=== PATIENT | female | born 1975 | race Caucasian/White ===

== ENCOUNTER 2016-11-16 13:21 | Emergency (ER) | payer OTHER ==
--- NOTE | 2016-11-16 15:44 | RAD ---
HISTORY: Subacute left knee trauma, pain COMPARISONS: None VIEWS: 4, Frontal, lateral, axial, and oblique views of the left knee FINDINGS: BONE DENSITY: Normal. BONES: There is no displaced fracture. JOINTS: There is no arthropathy. There is no suprapatellar joint effusion or lipohemarthrosis. ALIGNMENT: There is no dislocation. SOFT TISSUES: Unremarkable. OTHER FINDINGS: None. IMPRESSION: NO ACUTE OSSEOUS INJURY. IF SYMPTOMS PERSIST, RECOMMEND REPEAT IMAGING.
[2016-11-16 16:07] VITALS: BP 117/69
--- NOTE | 2016-11-16 16:53 | UC ---
Knee Pain HPI - HPI Summary HPI Summary: FOUR DAYS AGO LEFT KNEE TWISTED, HAS HAD CONTINUED PAIN SINCE INJURY. HX OF RIGHT KNEE BURSITIS - History of Current Complaint Chief Complaint: UCLowerExtremity Stated Complaint: KNEE PAIN Time Seen by Provider: 11/16/16 15:09 Hx Obtained From: Patient, Family/High Pressure Cleaner Onset/Duration: Sudden Onset, Lasting Days, Still Present Severity Initially: Moderate Severity Currently: Moderate Character: Dull, Aching Aggravating Factor(s): Movement, Weight Bearing, Prolonged Standing Alleviating Factor(s): Rest, Position Able to Bear Weight: Yes - WITH PAIN - Risk Factors Septic Arthritis Risk Factor: Negative Gout Risk Factor: Negative - Allergies/Home Medications Allergies/Adverse Reactions: Allergies Allergy/AdvReac Type Severity Reaction Status Date / Time Morphine Allergy Intermediate Hives Verified 11/16/16 13:57 Cephalexin [From Keflex] Allergy Mild Hives Verified 11/16/16 13:57 Ciprofloxacin Allergy Mild Rash Verified 11/16/16 13:57 Levofloxacin [From Levaquin] Allergy Mild Hives Verified 11/16/16 13:57 Meperidine [From Demerol HCl] Allergy Mild Pain Verified 11/16/16 13:57 Codeine AdvReac Intermediate Headache Verified 11/16/16 13:57 PMH/Surg Hx/FS Hx/Imm Hx Previously Healthy: Yes Endocrine History Of: Denies: Diabetes, Thyroid Disease Cardiovascular History Of: Denies: Cardiac Disorders, Hypertension, Pacemaker/ICD, Congestive Heart Failure Respiratory History Of: Reports: COPD, Asthma GI/ History Of: Reports: Gastroesophageal Reflux, Kidney Stones Denies: Renal Disease Neurological History Of: Denies: CVA, Dementia, Seizures Psychological History Of: Reports: Depression, Bipolar Disorder Other History Of: Negative For: Anticoagulant Therapy - Surgical History Surgical History: Yes Surgery Procedure, Year, and Place: HYSTERECTOMY/MARIE/LITHO 1X FOR RENAL CALCULI/TONSILS, APPENDECTOMY. april 2016 - gastric bypass - Family History Known Family History: Positive: None, Cardiac Disease, Other - grandfather of [place] in 50s, grandmother of cancer in 50s - Social History Occupation: Employed Full-time Lives: With Family Alcohol Use: None Substance Use Type: None Smoking Status (MU): Former Smoker Type: Cigarettes Amount Used/How Often: 1 pack every 2 weeks Length of Time of Smoking/Using Tobacco: 22 years Have You Smoked in the Last Year: Yes Household Exposure Type: Cigarettes - Immunization History Most Recent Influenza Vaccination: never Most Recent Tetanus Shot: unknown Most Recent Pneumonia Vaccination: no Review of Systems Constitutional: Negative Skin: Negative Eyes: Negative ENT: Negative Respiratory: Negative Cardiovascular: Negative Gastrointestinal: Negative Genitourinary: Negative Motor: Negative Neurovascular: Negative Musculoskeletal: Arthralgia, Myalgia Neurological: Negative Psychological: Negative All Other Systems Reviewed And Are Negative: Yes Physical Exam Triage Information Reviewed: Yes Appearance: Well-Appearing, No Pain Distress, Well-Nourished Vital Signs: Initial Vital Signs Temp 98.1 F 11/16/16 13:53 Pulse 69 11/16/16 13:53 Resp 20 11/16/16 13:53 BP 125/71 11/16/16 13:53 Pulse Ox 99 11/16/16 13:53 Vital Signs Reviewed: Yes Eye Exam: Normal ENT Exam: Normal ENT: Positive: Normal ENT inspection, Hearing grossly normal, Pharynx normal, TMs normal Dental Exam: Normal Neck exam: Normal Neck: Positive: Supple, Nontender, No Lymphadenopathy Respiratory Exam: Normal Respiratory: Positive: Chest non-tender, Lungs clear, Normal breath sounds, No respiratory distress, No accessory muscle use Cardiovascular Exam: Normal Cardiovascular: Positive: RRR, No Murmur, Pulses Normal Abdominal Exam: Normal Musculoskeletal Exam: Normal Musculoskeletal: Positive: Strength Limited @ - LEFT KNEE, ROM Limited @ - LEFT KNEE, Edema @ - LEFT KNEE Neurological Exam: Normal Psychological Exam: Normal Skin Exam: Normal Knee Pain Course/Dx - Differential Dx/Diagnosis Differential Diagnosis/HQI/PQRI: Fracture (Closed), Internal Derangement Of Knee , Sprain, Strain Provider Diagnoses: LEFT KNEE SPRAIN Discharge - Discharge Plan Condition: Stable Disposition: HOME Patient Education Materials: Knee Sprain (ED) Forms: *Work Release Referrals: Ben Crespo MD [Primary Care Provider] - Sandra Harvey MD [Medical Doctor] -
== END 2016-11-16 16:54 | disposition home or self-care (01) ==
LOC: UCEAST 13:21
DX: S83.92XA Sprain of unspecified site of left knee, initial encounter (principal); X50.1XXA Overexertion from prolonged static or awkward postures, initial encounter; Y93.9 Activity, unspecified; Y92.9 Unspecified place or not applicable; Z88.1 Allergy status to other antibiotic agents; Z88.5 Allergy status to narcotic agent; Z87.891 Personal history of nicotine dependence
CPT/HCPCS: 99212; G0463

== ENCOUNTER 2016-12-14 19:32 | Emergency (ER) | payer OTHER ==
[2016-12-14 21:16] LABS: Urine Bacteria 3+ (Absent); Urine Bilirubin Negative (Negative); Urine Glucose Negative (Negative); Urine Nitrite Positive (Negative)
[2016-12-15] MEDS ORDERED: traMADol TAB* 50 MG PO ONE (00:38)
[2016-12-15] MEDS ORDERED: Sulfamethox/Trimethoprim DS 800/160* TAB PO ONE (00:44)
--- NOTE | 2016-12-15 00:44 | ED ---
GI/ HPI - HPI Summary HPI Summary: Patient presents to ED with CC of urinary pain, burning frequency, urgency and right and left flank pain, worsen in the right flank. She denies gross hematuria. She states she has UTI's often and a history of kidney stones with blasting procedure and kidney infection. Symptoms have been present for 2 days and have been increasing in severity. She denies other symptoms such as chest pain, pressure, abdominal pain or weakness. Denies fever, sweats or chills. She has taken Pyridium without relief. - History of Current Complaint Chief Complaint: EDUrogenitalProblems Time Seen by Provider: 12/15/16 00:30 Stated Complaint: BURNING WHEN URINATING Hx Obtained From: Patient Onset/Duration: Started Hours Ago Timing: Constant Severity: Moderate Current Severity: Moderate Pain Intensity: 8 Location of Pain: Suprapubic Pain Characteristics: Sharp Associated Signs and Symptoms: Positive: Back Pain, UTI Symptoms Aggravating Factor(s): Nothing Alleviating Factor(s): Nothing - Risk Factors GI Bleed Risk Factor(s): Negative Spontaneous AB Risk Factor(s): Negative Placental Abruption Risk Factor(s): Negative Ectopic Risk Factor(s): Maternal Age ^ 30 Ovarian Torsion Risk Factor(s): Reproductive Age - Additional Pertinent History Primary Care Physician: [id number] - Allergy/Home Medications Allergies/Adverse Reactions: Allergies Allergy/AdvReac Type Severity Reaction Status Date / Time Morphine Allergy Intermediate Hives Verified 11/23/16 13:41 Cephalexin [From Keflex] Allergy Mild Hives Verified 11/23/16 13:41 Ciprofloxacin Allergy Mild Rash Verified 11/23/16 13:41 Levofloxacin [From Levaquin] Allergy Mild Hives Verified 11/23/16 13:41 Meperidine [From Demerol HCl] Allergy Mild Pain Verified 11/23/16 13:41 Codeine AdvReac Intermediate Headache Verified 11/23/16 13:41 PMH/Surg Hx/FS Hx/Imm Hx Previously Healthy: Yes Endocrine/Hematology History: Denies: Hx Anticoagulant Therapy, Hx Diabetes, Hx Thyroid Disease Cardiovascular History: Denies: Hx Congestive Heart Failure, Hx Hypertension, Hx Pacemaker/ICD Respiratory History: Reports: Hx Asthma, Hx Chronic Obstructive Pulmonary Disease (COPD) GI History: Reports: Hx Gastroesophageal Reflux Disease History: Reports: Hx Kidney Infection, Hx Kidney Stones, Other Problems/ Disorders - RENAL CALCULI WITH LITHO Denies: Hx Dialysis, Hx Renal Disease Musculoskeletal History: Reports: Hx Arthritis, Other Musculoskeletal History - degenerative disk disease Sensory History: Reports: Hx Contacts or Glasses Denies: Hx Hearing Aid Opthamlomology History: Reports: Hx Contacts or Glasses Neurological History: Denies: Hx Dementia, Hx Seizures Psychiatric History: Reports: Hx Depression, Hx Bipolar Disorder Denies: Hx Panic Disorder, Hx Substance Abuse - Cancer History Cancer Type, Location and Year: CERVICAL - Surgical History Surgery Procedure, Year, and Place: HYSTERECTOMY/MARIE/LITHO 1X FOR RENAL CALCULI/TONSILS, APPENDECTOMY. april 2016 - gastric bypass Hx Anesthesia Reactions: No - Immunization History Date of Tetanus Vaccine: N Date of Influenza Vaccine: N Hx Pertussis Vaccination: No Immunizations Up to Date: No Infectious Disease History: No Infectious Disease History: Denies: Hx Clostridium Difficile, Hx Hepatitis, Hx Human Immunodeficiency Virus (HIV), Hx of Known/Suspected MRSA, Hx Shingles, Hx Tuberculosis, Hx Known/ Suspected VRE, Hx Known/Suspected VRSA, History Other Infectious Disease, Traveled Outside the [place] in Last 30 Days - Family History Known Family History: Positive: None, Cardiac Disease, Other - grandfather of [place] in 50s, grandmother of cancer in 50s - Social History Occupation: Employed Full-time Lives: With Family Alcohol Use: None Hx Substance Use: No Substance Use Type: Reports: None Hx Tobacco Use: Yes - smoked 1/2 ppd since age 17 to age 39 Smoking Status (MU): Former Smoker Type: Cigarettes Amount Used/How Often: 1 pack every 2 weeks Length of Time of Smoking/Using Tobacco: 22 years Have You Smoked in the Last Year: Yes Review of Systems Constitutional: Negative Eyes: Negative Cardiovascular: Negative Respiratory: Negative Positive: see HPI, flank pain, pain, urgency Musculoskeletal: Negative Skin: Negative Neurological: Negative Psychological: Normal All Other Systems Reviewed And Are Negative: Yes Physical Exam Triage Information Reviewed: Yes Vital Signs On Initial Exam: Initial Vitals Temp Pulse Resp BP Pulse Ox 98.4 F 84 16 145/79 100 12/14/16 19:44 12/14/16 19:44 12/14/16 19:44 12/14/16 19:44 12/14/16 19:44 Vital Signs Reviewed: Yes Appearance: Positive: Well-Appearing, No Pain Distress, Well-Nourished Skin: Positive: Warm, Skin Color Reflects Adequate Perfusion Head/Face: Positive: Normal Head/Face Inspection Eyes: Positive: EOMI, JACQUES, Conjunctiva Clear Dental: Positive: Abscess @ Neck: Positive: No Lymphadenopathy Respiratory/Lung Sounds: Positive: Clear to Auscultation, Breath Sounds Present Cardiovascular: Positive: Normal, RRR Abdomen Description: Positive: Nontender, Soft Bowel Sounds: Positive: Present Musculoskeletal: Positive: Normal, Strength/ROM Intact Neurological: Positive: Speech Normal Psychiatric: Positive: Normal Diagnostics - Vital Signs Vital Signs Temp Pulse Resp BP Pulse Ox 12/14/16 22:06 97.3 F 68 16 120/79 100 12/14/16 19:44 98.4 F 84 16 145/79 100 - Laboratory Lab Results: Lab Results 12/14/16 Range/Units 19:50 Urine Color [place] Urine Appearance Cloudy Urine pH 6.0 (5-9) Ur Specific [place] 1.013 (1.010-1.030) Urine Protein 1+(30 mg/dl) H (Negative) Urine Ketones Negative (Negative) Urine Blood Negative (Negative) Urine Nitrate Positive H (Negative) Urine Bilirubin Negative (Negative) Urine Urobilinogen Positive H (Negative) Ur Leukocyte Esterase 2+ H (Negative) Urine WBC (Auto) 3+(>20/hpf) H (Absent) Urine RBC (Auto) 3+(>10/hpf) H (Absent) Ur Squamous Epith Cells Present H (Absent) Urine Bacteria 3+ H (Absent) Hyaline Casts Present H (Absent) Urine Glucose Negative (Negative) Lab Statement: Any lab studies that have been ordered have been reviewed, and results considered in the medical decision making process. GIGU Course/Dx - Course Course Of Treatment: UA performed. WBC and leuks seen. Labs WNL. Patient experiencing urgency, frequency and pain on urination. Dark urine noted. No abnormal vaginal discharge or bleeding. CVA tenderness bilaterally, worse on L flank. No previous UTI within last 6 months and no recent Augmentin use. Will treat for uncomplicated UTI and await sensitivities of urine culture. Will call if abx not sensitive to medication. Pyridium given for comfort. Return precautions and follow up with PCP. Patient was sent to CT d/t right sided flank pain and history of large kidney stones with lithotripsy. Bactrim and tramadol given in ED. Prescription for Bactrim sent to rx. Encouraged pyridium, which patient has at home for analgesia. - Diagnoses Differential Diagnoses - Female: Renal Calculi, Renal Colic, Urinary Tract Infection, Ureteral Calculi Provider Diagnoses: Urinary tract infection Discharge - Discharge Plan Condition: Stable Disposition: HOME Prescriptions: Phenazopyridine TAB* [Pyridium 100 mg TAB*] 100 mg PO TID #20 tab Sulfamethox/Trimethoprim DS* [Bactrim DS 800/160 TAB*] 1 tab PO BID #5 tab MDD 2 Patient Education Materials: Urinary Tract Infection in Women (ED) Referrals: Ben Crespo MD [Primary Care Provider] - Additional Instructions: Dx. Urinary Tract Infection Drink plenty of fluids. Supplement with cranberry or rabago juice. You may also take an over the counter cranberry supplement. If you have any questions about this, you may ask your pharmacist. If your symptoms have not improved in 1-2 days, if you develop fever, sweats or chills, please go to your emergency room, or call your PCP. Antibiotics were prescribed to you. Please take as directed. Supplement with over the counter probiotics on the opposite schedule of your antibiotic to prevent secondary infections. Do not take together as they may counteract each other. Pyridium: This medication is used to treat pain, burning, increased urination, and increased urge to urinate. These symptoms are usually caused by infection, injury, surgery, catheter, or other conditions that irritate the lower urinary tract. Pyridium will treat the symptoms of a urinary tract infection, but this medication does not treat the actual infection. Take the antibiotic that your doctor prescribes to treat your infection. Pyridium will most likely darken the color of your urine to an orange or red color. This is a normal effect and is not cause for alarm unless you have other symptoms such as pale or yellowed skin, fever, stomach pain, nausea, and vomiting. Darkened urine may also cause stains to your underwear, which may or may not be removed by laundering. It can also permanently stain soft contact lenses, and you should not wear them while taking this medicine.
[2016-12-15 01:19] VITALS: BP 138/88
[2016-12-15] MEDS ORDERED: Phenazopyridine TAB* 100 MG PO ONE (02:25)
--- NOTE | 2016-12-15 07:48 | RAD ---
Indication: Bilateral flank pain. CT of the abdomen and pelvis was performed without oral or IV contrast demonstration. Coronal and sagittal reconstructed images were obtained. Comparison is made with previous exam dated October 02, 2015. The lung bases demonstrate no pleural fluid, nodules or masses. Heart is of normal size without evidence of pericardial effusion. Liver is normal in size. No focal lesions or intrahepatic ductal dilatation is noted. Patient is status post cholecystectomy. The spleen is normal in size. The common duct is not dilated. Patient is status post cholecystectomy. The pancreas demonstrates no mass or pancreatic duct dilatation. No adrenal lesions are noted. The kidneys demonstrate no focal masses or hydronephrosis. Tiny calculi are noted in the lower pole of the right kidney which are nonobstructing. No hydroureter is noted noted. Aorta and inferior vena cava are unremarkable. No dilated loops of bowel are noted. CT of the pelvis demonstrates no retroperitoneal or pelvic lymphadenopathy. The urinary bladder is unremarkable. Multiple surgical clips are noted in the pelvis. The patient has had a prior anterior abdominal wall hernia repair. IMPRESSION: NONOBSTRUCTING CALCULI LOWER POLE RIGHT KIDNEY. NO EVIDENCE OF OBSTRUCTIVE UROPATHY IS NOTED. NO OTHER MASSES OR FLUID COLLECTIONS ARE NOTED. PATIENT IS STATUS POST ANTERIOR ABDOMINAL WALL HERNIA REPAIR.
== END 2016-12-15 02:57 | disposition home or self-care (01) ==
LOC: ED 19:32
DX: N39.0 Urinary tract infection, site not specified (principal); Z87.891 Personal history of nicotine dependence; F31.9 Bipolar disorder, unspecified; Z87.442 Personal history of urinary calculi; J44.9 Chronic obstructive pulmonary disease, unspecified
CPT/HCPCS: 74176; 81003; 81015; 87077; 87086; 87186; 99282; A9270-GY

== ENCOUNTER 2017-02-10 18:44 | Emergency (ER) | payer OTHER ==
[2017-02-10 21:43] LABS: Urine Bacteria 1+ (Absent); Urine Bilirubin Negative (Negative); Urine Glucose Negative (Negative); Urine Nitrite Positive (Negative)
[2017-02-10] MEDS ORDERED: NS 0.9% 1000 ML* 1,000 ML IV ONE (21:53)
[2017-02-10] MEDS ORDERED: Ketorolac INJ* 30 MG/ML 1 ML VIAL IV ONE (21:53)
[2017-02-10 22:13] LABS: Hematocrit 43 % (35-47); Hemoglobin 14.1 g/dl (12.0-16.0); Mean Corpuscular HGB Conc 33 g/dl (31-36); Mean Corpuscular Hemoglobin 29 pg (27-31); Mean Corpuscular Volume 88 fL (80-97); Mean Platelet Volume 8 um3 (7.4-10.4); Red Blood Count 4.84 10^6/ul (4.0-5.4); Red Cell Distribution Width 13 % (10.5-15); White Blood Count 7.7 10^3/ul (3.5-10.8)
[2017-02-10 22:17] LABS: Albumin 3.9 g/dL (3.2-5.2); BUN/Creatinine Ratio 9.5 (8-20); EGFR African American 84.2 (>60); EGFR Non-African American 65.5 (>60); Globulin 2.4 g/dL (2-4); Potassium 3.6 mmol/L (3.5-5.0); Total Bilirubin 0.6 mg/dL (0.2-1.0); Total Protein 6.3 g/dL (6.4-8.9)
--- NOTE | 2017-02-10 22:18 | RAD ---
INDICATION: Bilateral flank pain. History of nephrolithiasis. History of lithotripsy. COMPARISON: CT December 15, 2016 TECHNIQUE: Noncontrast axial source images were acquired from the level hemidiaphragms to the symphysis pubis as part of CT imaging for renal stone. Lung bases: The lung bases are clear. Liver: The liver is normal in size. Noncontrast imaging shows no evidence of a hepatic mass or ductal dilatation. Gallbladder: Cholecystectomy. Spleen: The spleen is normal in size. The noncontrast CT appearance is normal. Pancreas: Noncontrast imaging shows no pancreatic mass or ductal dilitation. Adrenal glands: No masses are identified. Kidneys/Bladder: There are several tiny calculi in the lower pole the right kidney and one tiny calculus in the midpole region of the left kidney. These calcifications measure 1 to 2 mm. There are no other calcifications of urinary significance. There is no obstruction. There is a ossification adjacent to the proximal to mid right ureter appearing unchanged and consistent with a phlebolith and a gonadal vein. Adenopathy: There is no evidence of intraperitoneal or retroperitoneal adenopathy. Evaluation is limited without oral contrast. Fluid collections: There are no free or localized fluid collections. Vessels: The aorta and iliac vessels are normal in caliber. There are no significant atherosclerotic changes. The IVC appears normal Pelvic organs: There is hysterectomy. There is no adnexal mass GI tract: Evaluation of the bowel is limited without oral contrast. There is prior bariatric surgery. The small bowel and colon are unremarkable. There are no obstructive findings. There is appendectomy. Soft tissues: No soft tissue abnormalities of the extraperitoneal abdomen or pelvis are identified. Osseous structures: There are no acute osseous findings. IMPRESSION: 1. NONOBSTRUCTIVE NEPHROLITHIASIS, UNCHANGED. 2. SURGICAL CHANGES TO INCLUDE BARIATRIC SURGERY, CHOLECYSTECTOMY, APPENDECTOMY, HYSTERECTOMY. 3. NO ACUTE CT FINDINGS. NO MASS OR INFLAMMATORY CHANGES.
[2017-02-10] MEDS ORDERED: Nitrofurantoin Macrocrystals* 50 MG CAP PO ONE (22:52)
[2017-02-10] MEDS ORDERED: Phenazopyridine TAB* 100 MG PO ONE (22:52)
[2017-02-10 23:03] VITALS: BP 110/67
--- NOTE | 2017-02-10 23:42 | ED ---
Back Pain - HPI Summary HPI Summary: Patient has a history of recurrent UTI's and three days ago began to develop burning with urination. 8 hours ago she began to have bilateral flank pain that felt the way she felt when she had kidney stones in the past. She has blood in her urine, no fever, L>R flank pain, suprapubic pain, no CP, SOB or recent illness. She denies vaginal discharge and her period is regular. - History of Current Complaint Chief Complaint: EDFlankPain Stated Complaint: FLANK PAIN Time Seen by Provider: 02/10/17 21:16 Hx Obtained From: Patient Onset/Duration: Gradual Onset Onset/Duration: Started Days Ago, Atraumatic, Worse Since - 8 hours ago Timing: Constant Back Pain Location: Is Discrete @ - bilatera flank L>R Severity Initially: Moderate Severity Currently: Severe Pain Intensity: 10 Character: Sharp, Aching Alleviating Symptom(s): Cold - ice pack reduces pain Associated Signs And Symptoms: Positive: Abdominal Pain - suprapubic, Flank Pain Related History: Similar Episode Dx As - recurrent UTIs and kindey stones - Allergies/Home Medications Allergies/Adverse Reactions: Allergies Allergy/AdvReac Type Severity Reaction Status Date / Time Morphine Allergy Intermediate Hives Verified 02/10/17 18:51 Cephalexin [From Keflex] Allergy Mild Hives Verified 02/10/17 18:51 Ciprofloxacin Allergy Mild Rash Verified 02/10/17 18:51 Levofloxacin [From Levaquin] Allergy Mild Hives Verified 02/10/17 18:51 Meperidine [From Demerol HCl] Allergy Mild Pain Verified 02/10/17 18:51 Codeine AdvReac Intermediate Headache Verified 02/10/17 18:51 PMH/Surg Hx/FS Hx/Imm Hx Endocrine/Hematology History: Denies: Hx Anticoagulant Therapy, Hx Diabetes, Hx Thyroid Disease Cardiovascular History: Denies: Hx Congestive Heart Failure, Hx Hypertension, Hx Pacemaker/ICD Respiratory History: Reports: Hx Asthma, Hx Chronic Obstructive Pulmonary Disease (COPD) GI History: Reports: Hx Gastroesophageal Reflux Disease History: Reports: Hx Kidney Infection, Hx Kidney Stones, Other Problems/ Disorders - RENAL CALCULI WITH LITHO Denies: Hx Dialysis, Hx Renal Disease Musculoskeletal History: Reports: Hx Arthritis, Other Musculoskeletal History - degenerative disk disease Sensory History: Reports: Hx Contacts or Glasses Denies: Hx Hearing Aid Opthamlomology History: Reports: Hx Contacts or Glasses Neurological History: Denies: Hx Dementia, Hx Seizures Psychiatric History: Reports: Hx Depression, Hx Bipolar Disorder Denies: Hx Panic Disorder, Hx Substance Abuse - Cancer History Cancer Type, Location and Year: CERVICAL - Surgical History Surgery Procedure, Year, and Place: HYSTERECTOMY/MARIE/LITHO 1X FOR RENAL CALCULI/TONSILS, APPENDECTOMY. april 2016 - gastric bypass Hx Anesthesia Reactions: No - Immunization History Date of Tetanus Vaccine: N Date of Influenza Vaccine: N Infectious Disease History: No Infectious Disease History: Denies: Hx Clostridium Difficile, Hx Hepatitis, Hx Human Immunodeficiency Virus (HIV), Hx of Known/Suspected MRSA, Hx Shingles, Hx Tuberculosis, Hx Known/ Suspected VRE, Hx Known/Suspected VRSA, History Other Infectious Disease, Traveled Outside the [place] in Last 30 Days - Family History Known Family History: Positive: None, Cardiac Disease, Other - grandfather of [place] in 50s, grandmother of cancer in 50s - Social History Occupation: Employed Part-time Lives: With Family Alcohol Use: None Hx Substance Use: No Substance Use Type: Reports: None Hx Tobacco Use: Yes - smoked 1/2 ppd since age 17 to age 39 Smoking Status (MU): Former Smoker Type: Cigarettes Amount Used/How Often: 1 pack every 2 weeks Length of Time of Smoking/Using Tobacco: 22 years Have You Smoked in the Last Year: Yes Cessation Counseling: Patient Advised to Stop Review of Systems Negative: Fever, Chills Negative: Chest Pain Negative: Shortness Of Breath Positive: burning, flank pain, hematuria, urgency Positive: Myalgia Negative: Weakness, Paresthesia, Numbness All Other Systems Reviewed And Are Negative: Yes Physical Exam Triage Information Reviewed: Yes Vital Signs On Initial Exam: Initial Vitals Temp Pulse Resp BP Pulse Ox 97.8 F 52 16 143/63 100 02/10/17 18:51 02/10/17 18:51 02/10/17 18:51 02/10/17 18:51 02/10/17 18:51 Vital Signs Reviewed: Yes Appearance: Positive: Well-Appearing, No Pain Distress, Obese Skin: Positive: Warm, Skin Color Reflects Adequate Perfusion, Dry, Soft Head/Face: Positive: Normal Head/Face Inspection Eyes: Positive: EOMI, JACQUES, Conjunctiva Clear ENT: Positive: Hearing grossly normal, Pharynx normal Neck: Positive: Supple, Nontender, No Lymphadenopathy Respiratory/Lung Sounds: Positive: Clear to Auscultation, Breath Sounds Present Cardiovascular: Positive: RRR Abdomen Description: Positive: Soft, CVA Tenderness (R), CVA Tenderness (L). Negative: Nontender - TTP suprapubic region, Distended, Guarding, McBurney's Point Tenderness Bowel Sounds: Positive: Present Musculoskeletal: Positive: Strength/ROM Intact. Negative: Edema Left, Edema Right Neurological: Positive: Sensory/Motor Intact, Alert, Oriented to Person Place, Time, NV Bundle Intact Distally, Normal Gait - Leonel Coma Scale Coma Scale Total: 15 Diagnostics - Vital Signs Vital Signs Temp Pulse Resp BP Pulse Ox 02/10/17 22:59 56 17 110/67 02/10/17 22:30 44 18 107/58 96 02/10/17 22:08 50 14 97 02/10/17 22:05 112/69 02/10/17 21:59 46 17 93 02/10/17 21:50 46 95 02/10/17 21:49 99/55 02/10/17 18:51 97.8 F 52 16 143/63 100 - Laboratory Lab Results: Lab Results 02/10/17 02/10/17 02/10/17 Range/Units 21:25 21:45 21:45 WBC 7.7 (3.5-10.8) 10^3/ul RBC 4.84 (4.0-5.4) 10^6/ul Hgb 14.1 (12.0-16.0) g/dl Hct 43 (35-47) % MCV 88 (80-97) fL MCH 29 (27-31) pg MCHC 33 (31-36) g/dl RDW 13 (10.5-15) % Plt Count 239 (150-450) 10^3/ul MPV 8 (7.4-10.4) um3 Neut % (Auto) 44.2 (38-83) % Lymph % (Auto) 46.8 (25-47) % Levy % (Auto) 6.4 (1-9) % Eos % (Auto) 2.3 (0-6) % Baso % (Auto) 0.3 (0-2) % Absolute Neuts (auto) 3.4 (1.5-7.7) 10^3/ul Absolute Lymphs (auto) 3.6 (1.0-4.8) 10^3/ul Absolute Monos (auto) 0.5 (0-0.8) 10^3/ul Absolute Eos (auto) 0.2 (0-0.6) 10^3/ul Absolute Basos (auto) 0 (0-0.2) 10^3/ul Absolute Nucleated RBC 0 10^3/ul Nucleated RBC % 0 Sodium 137 (133-145) mmol/L Potassium 3.6 (3.5-5.0) mmol/L Chloride 104 (101-111) mmol/L Carbon Dioxide 26 (22-32) mmol/L Anion Gap 7 (2-11) mmol/L BUN 9 (6-24) mg/dL Creatinine 0.95 (0.51-0.95) mg/dL Est GFR ( Amer) 84.2 (>60) Est GFR (Non-Af Amer) 65.5 (>60) BUN/Creatinine Ratio 9.5 (8-20) Glucose 94 (70-100) mg/dL Lactic Acid (0.5-2.0) mmol/L Calcium 9.0 (8.6-10.3) mg/dL Total Bilirubin 0.60 (0.2-1.0) mg/dL AST 13 (13-39) U/L ALT 13 (7-52) U/L Alkaline Phosphatase 58 (34-104) U/L Total Protein 6.3 L (6.4-8.9) g/dL Albumin 3.9 (3.2-5.2) g/dL Globulin 2.4 (2-4) g/dL Albumin/Globulin Ratio 1.6 (1-3) Urine Color Julianna Urine Appearance Cloudy Urine pH 6.0 (5-9) Ur Specific [place] 1.028 (1.010-1.030) Urine Protein 3+(>=500 mg/dl) H (Negative) Urine Ketones Trace H (Negative) Urine Blood 1+ H (Negative) Urine Nitrate Positive H (Negative) Urine Bilirubin Negative (Negative) Urine Urobilinogen Positive H (Negative) Ur Leukocyte Esterase 3+ H (Negative) Urine WBC (Auto) 3+(>20/hpf) H (Absent) Urine RBC (Auto) 3+(>10/hpf) H (Absent) Ur Squamous Epith Cells Present H (Absent) Urine Bacteria 1+ H (Absent) Urine Glucose Negative (Negative) Urine Ascorbic Acid * H (Negative) 02/10/17 Range/Units 21:45 WBC (3.5-10.8) 10^3/ul RBC (4.0-5.4) 10^6/ul Hgb (12.0-16.0) g/dl Hct (35-47) % MCV (80-97) fL MCH (27-31) pg MCHC (31-36) g/dl RDW (10.5-15) % Plt Count (150-450) 10^3/ul MPV (7.4-10.4) um3 Neut % (Auto) (38-83) % Lymph % (Auto) (25-47) % Levy % (Auto) (1-9) % Eos % (Auto) (0-6) % Baso % (Auto) (0-2) % Absolute Neuts (auto) (1.5-7.7) 10^3/ul Absolute Lymphs (auto) (1.0-4.8) 10^3/ul Absolute Monos (auto) (0-0.8) 10^3/ul Absolute Eos (auto) (0-0.6) 10^3/ul Absolute Basos (auto) (0-0.2) 10^3/ul Absolute Nucleated RBC 10^3/ul Nucleated RBC % Sodium (133-145) mmol/L Potassium (3.5-5.0) mmol/L Chloride (101-111) mmol/L Carbon Dioxide (22-32) mmol/L Anion Gap (2-11) mmol/L BUN (6-24) mg/dL Creatinine (0.51-0.95) mg/dL Est GFR ( Amer) (>60) Est GFR (Non-Af Amer) (>60) BUN/Creatinine Ratio (8-20) Glucose (70-100) mg/dL Lactic Acid 1.0 (0.5-2.0) mmol/L Calcium (8.6-10.3) mg/dL Total Bilirubin (0.2-1.0) mg/dL AST (13-39) U/L ALT (7-52) U/L Alkaline Phosphatase (34-104) U/L Total Protein (6.4-8.9) g/dL Albumin (3.2-5.2) g/dL Globulin (2-4) g/dL Albumin/Globulin Ratio (1-3) Urine Color Urine Appearance Urine pH (5-9) Ur Specific [place] (1.010-1.030) Urine Protein (Negative) Urine Ketones (Negative) Urine Blood (Negative) Urine Nitrate (Negative) Urine Bilirubin (Negative) Urine Urobilinogen (Negative) Ur Leukocyte Esterase (Negative) Urine WBC (Auto) (Absent) Urine RBC (Auto) (Absent) Ur Squamous Epith Cells (Absent) Urine Bacteria (Absent) Urine Glucose (Negative) Urine Ascorbic Acid (Negative) Result Diagrams: 02/10/17 21:45 02/10/17 21:45 Lab Statement: Any lab studies that have been ordered have been reviewed, and results considered in the medical decision making process. - CT No standard instances CT Interpretation: No Acute Changes CT Interpretation Completed By: Radiologist Back Pain Course/Dx - Diagnoses Differential Diagnosis/HQI/PQRI: Positive: Aneurysm, Arthritis, Cauda Equina Syndrome, Fracture, Herniated Disc, Renal Colic, Strain, Sprain Provider Diagnoses: UTI (urinary tract infection) Discharge - Discharge Plan Condition: Stable Disposition: HOME Prescriptions: Nitrofurantoin Monohyd Macro [Macrobid] 100 mg PO BID #10 cap Phenazopyridine 200 mg (NF) [Pyridium 200 MG tab] 200 mg PO TID PRN #6 tab PRN Reason: Pain Patient Education Materials: Urinary Tract Infection in Women (ED) Referrals: Ben Crespo MD [Primary Care Provider] - Additional Instructions: You need to call your primary care provider and/or Dr. Ott to discuss your recurrent urinary tract infections. Use your pyridium and take the antibiotics until they are completely gone. Return to the emergency department if you develop a fever, or symptoms worsen.
--- NOTE | 2017-02-12 09:56 | PN ---
Progress Note - Progress Note Date of Service: 02/12/17 Note: Patient urine culture grew E coli 75-100,000. PT placed on macrobid will wait for final culture.
== END 2017-02-10 23:12 | disposition home or self-care (01) ==
LOC: ED 18:44
DX: N39.0 Urinary tract infection, site not specified (principal); R10.84 Generalized abdominal pain; Z87.891 Personal history of nicotine dependence; R31.9 Hematuria, unspecified; M79.1 Myalgia
CPT/HCPCS: 36415; 74176; 80053; 81003; 81015; 83605; 85025; 87077; 87086; 87186; 96374; 99282; A9270-GY; J1885

== ENCOUNTER 2017-02-16 20:19 | Observation (INO) | payer OTHER ==
[2017-02-16 21:24] LABS: Urine Bilirubin Negative (Negative); Urine Glucose Negative (Negative); Urine Nitrite Negative (Negative)
[2017-02-16 21:32] LABS: Hematocrit 44 % (35-47); Hemoglobin 14.7 g/dl (12.0-16.0); Mean Corpuscular HGB Conc 33 g/dl (31-36); Mean Corpuscular Hemoglobin 30 pg (27-31); Mean Corpuscular Volume 89 fL (80-97); Mean Platelet Volume 8 um3 (7.4-10.4); Red Blood Count 4.94 10^6/ul (4.0-5.4); Red Cell Distribution Width 12 % (10.5-15); White Blood Count 7.3 10^3/ul (3.5-10.8)
[2017-02-16 21:46] LABS: ALT 14 U/L (7-52); AST 14 U/L (13-39); Albumin 4.1 g/dL (3.2-5.2); Alkaline Phosphatase 62 U/L (34-104); Anion Gap 1 mmol/L (2-11); BUN/Creatinine Ratio 9.1 (8-20); Blood Urea Nitrogen 8 mg/dL (6-24); CO2 Carbon Dioxide 31 mmol/L (22-32); Chloride 104 mmol/L (101-111); EGFR Non-African American 71.5 (>60); Globulin 2.3 g/dL (2-4); Glucose 96 mg/dL (70-100); Sodium 136 mmol/L (133-145); Total Protein 6.4 g/dL (6.4-8.9)
[2017-02-16] MEDS ORDERED: Gentamicin ADULT (*) 40 MG/ML VIAL IVPB ONE (21:47)
[2017-02-16] MEDS ORDERED: oxyCODONE/Acetamin 5/325 MG* TAB PO ONE (21:49)
--- NOTE | 2017-02-16 21:53 | RAD ---
Indication: RIGHT flank pain. Few punctate calyceal stones at the RIGHT kidney on prior CT. Comparison: February 10, 2017 CT. Technique: Renal ultrasound. Report: 11.4 x 5.0 x 5.3 cm RIGHT kidney. 10.9 x 4.1 x 5.7 cm LEFT kidney. Normal bilateral renal cortical echogenicity. No conspicuous shadowing echogenic foci to confirm persistent nephrolithiasis at this time. Negative for hydronephrosis. No focal renal lesions evident. Negative for perinephric fluid. IMPRESSION: Negative renal ultrasound.
[2017-02-17] MEDS ORDERED: Acetaminophen TAB* 325 MG PO PRN (00:45)
[2017-02-17] MEDS: NS 0.9% 1000 ML* 1,000 ML IV SCH ×2 (00:59→09:06)
[2017-02-17] MEDS: HYDROmorphone* 1 MG/ML 1 ML SYR IV SLOW PU PRN ×3 (01:00→10:28)
[2017-02-17] MEDS: oxyCODONE/Acetamin 5/325 MG* TAB PO SCH ×2 (05:34→12:21)
[2017-02-17] MEDS: oxyCODONE TAB* 5 MG TAB PO SCH ×2 (05:34→12:22)
[2017-02-17] MEDS ORDERED: Heparin VIAL(*) 5000 UNITS/ML VIAL (FIVE THOUSAND) SUBCUT SCH (06:00)
--- NOTE | 2017-02-17 08:49 | HP ---
CC: Ben Crespo MD * HISTORY AND PHYSICAL: DATE OF ADMISSION: 02/17/17 CHIEF COMPLAINT: Flank pain. HISTORY OF PRESENT ILLNESS: The patient is a 41-year-old woman who was recently in the emergency department, diagnosed with a UTI and placed on Macrodantin. This was on February 10 of this year. She said, however, she has had increasing flank pain on left side. She saw her PCP who noted that she had some stones on her last CAT scan. She was given tramadol, but this did not help. She was also told that her CAT scan had the same stones in it in November. She thinks she had some traces of blood in her urine. The pain radiates from the back to the front. She denies any fevers or chills. She has been taking Percocet she also has at home, but that is not helping. In the ER, the patient was evaluated. She had a normal white count. She had no fever. She had a renal ultrasound which was negative as well. PAST MEDICAL HISTORY: She has a past medical history significant for migraines , depression, nephrolithiasis, bipolar disorder, gastroesophageal reflux disease , Parrish's esophagus, degenerative joint disease, COPD, chronic UTI, restless leg syndrome, and carpal tunnel syndrome. PAST SURGICAL HISTORY: Significant for cholecystectomy, appendectomy, hysterectomy, tonsillectomy, and gastric bypass. CURRENT MEDICATIONS: 1. Tramadol 37.5 mg every 4 hours as needed. 2. Macrobid 100 mg twice daily. 3. Furosemide 20 mg daily. 4. Amitriptyline 150 mg at bedtime. 5. Pyridium [70?] mg 3x a day as needed. 6. Protonix 20 mg daily. 7. Percocet 10/325 mg one tablet every 6 hours. 8. Topamax 100 mg twice daily. ALLERGIES: She has an allergy adverse reaction of: 1. CIPRO. 2. LEVAQUIN. 3. KEFLEX. 4. DEMEROL. 5. MORPHINE. 6. CODEINE. FAMILY HISTORY: She is adopted. She does not know her family history. SOCIAL HISTORY: The patient currently works as a dispatcher for medical transportation. She denies tobacco, alcohol, or recreational drug use. She is . She has four children. REVIEW OF SYSTEMS: A 14-point review of systems was completed with the patient. All pertinent positives and negative are in the history of present illness, otherwise it is negative. PHYSICAL EXAMINATION GENERAL: Pleasant woman lying in bed, in no distress. VITAL SIGNS: Temperature 97.7 degrees, heart rate 68 beats per minute, respiratory rate 20 breaths per minute, pulse oximetry 100%, blood pressure 151/ 93. HEENT: Normocephalic and atraumatic. Pupils are equal, round and reactive to light. Moist mucous membranes. NECK: Supple. No JVD, bruits, palpable thyroid or lymphadenopathy. CHEST: Clear to auscultation and percussion bilaterally. CARDIOVASCULAR: S1, S2 appreciated. Regular rate and rhythm. ABDOMEN: Positive bowel sounds in all 4 quadrants. Soft, nontender, except in the right flank area. EXTREMITIES: No cyanosis, clubbing, or edema. +2 pulses bilaterally. NEUROLOGIC: Alert and oriented x3. Moves all extremities. SKIN: No rashes or abnormalities. LABORATORY DATA: White count 7.3, hemoglobin 14.7, hematocrit 44, platelets 216. Sodium 136, potassium 4.0, chloride 104, CO2 of 31, BUN 8, creatinine 0.88 , glucose 96. Urinalysis is unremarkable. Renal ultrasound was interpreted as negative renal ultrasound. CAT scan done on February 10 was interpreted by radiology as nonobstructive nephrolithiasis, unchanged. Surgical changes to include bariatric surgery, cholecystectomy, appendectomy, hysterectomy. No acute CT findings. No mass or inflammatory changes. ASSESSMENT AND PLAN: 1. Flank pain. It is hard to believe that the nephrolithiasis she has which is very insignificant would cause this much pain. However, I will admit her overnight, hydrate her aggressively with normal saline ____ cc/hour. Give her hydromorphone 1 mg every 4 hours for pain, but she should likely be discharged tomorrow. As her urine is negative and was sensitive to the Macrobid, I will continue Macrobid. 2. GERD. Stable, continue proton pump inhibitor. 3. Bipolar disorder. Patient appears to be currently off medications; monitor. 4. DVT prophylaxis. Heparin subcu. 5. FEN. Regular diet. 6. The patient is a full code. TIME SPENT: Over 75 minutes were spent on this H and P, more than 40 minutes of which were spent in direct [id number] contact with the patient in evaluation, physical exam, counseling, and coordination of care. [id number]/[facility] #: [id number] ELBA
[2017-02-17] MEDS ORDERED: Nitrofurantoin Macrocrystals* 50 MG CAP PO SCH (09:00)
[2017-02-17] MEDS ORDERED: Furosemide TAB* 20 MG PO SCH (09:00)
[2017-02-17] MEDS ORDERED: Pantoprazole TAB (NF) 20 MG TAB PO SCH (09:00)
[2017-02-17] MEDS ORDERED: Topiramate TAB(*) 100 MG PO SCH (09:00)
[2017-02-17 09:05] LABS: C Reactive Protein < 1.00 mg/L (< 5.00)
[2017-02-17] MEDS: Ondansetron INJ* 2 MG/ML VIAL IV SCH ×2 (09:06→12:22)
[2017-02-17 10:04] LABS: Benzodiazepine Urine Screen None Detected (None Detect)
[2017-02-17] MEDS ORDERED: Omeprazole CAP* 20 MG PO SCH (10:10)
[2017-02-17 12:30] VITALS: BP 123/79
[2017-02-17] MEDS ORDERED: Iohexol 300* (CONTRAST) 10 ML SDV IV ONE (12:36)
--- NOTE | 2017-02-17 13:19 | RAD ---
CLINICAL HISTORY: Flank pain COMPARISON: February 10, 2017 TECHNIQUE: Multiple contiguous axial CT scans were obtained of the abdomen and pelvis after the administration of intravenous contrast. Coronal and sagittal multiplanar reformations are submitted for review. Oral contrast was administered. Delayed images were obtained through the abdomen and pelvis. FINDINGS: LUNG BASES: The lung bases are clear. LIVER: The liver is diffusely low in attenuation compared to the spleen. There are no focal hepatic parenchymal masses. BILE DUCTS: There is no intrahepatic or extrahepatic biliary dilatation. GALLBLADDER: The gallbladder is not visualized. Surgical clips are noted in the gallbladder fossa. PANCREAS: The pancreas is normal, without mass or ductal dilatation. SPLEEN: Normal in size and appearance. UPPER GI TRACT: Evaluation of the gastrointestinal tract is limited by incomplete gastric distention. There is postsurgical change to the upper GI tract. SMALL BOWEL AND MESENTERY: The small bowel is normal in contour, course, and caliber. There is no obstruction or dilatation. COLON: The colon is normal in contour, course, caliber. There is no pericolonic inflammatory change. ADRENALS: Normal bilaterally. KIDNEYS: Nephrolithiasis noted on the previous examination is not well evaluated on this contrast-enhanced examination. There is no hydronephrosis. BLADDER: The bladder is smooth in contour. PELVIC ORGANS: The pelvic organs are not visualized. AORTA: The aorta is normal. IVC: Unremarkable LYMPH NODES: There is no lymphadenopathy by size criteria. ABDOMINAL WALL: There is no evidence for abdominal wall hernia. BONES AND SOFT TISSUES: There are mild diffuse degenerative changes. OTHER: None IMPRESSION: NO ACUTE CT PATHOLOGY OF THE VISUALIZED ABDOMEN OR PELVIS
[2017-02-17] MEDS ORDERED: Amitriptyline TAB* 50 MG PO SCH (21:00)
--- NOTE | 2017-02-18 10:36 | DS ---
CC: Dr. Crespo * DISCHARGE SUMMARY: DATE OF ADMISSION: 02/17/17 DATE OF DISCHARGE: 02/17/17 PRIMARY CARE PROVIDER: Dr. Crespo. DISCHARGE DIAGNOSIS: Right flank pain, most likely musculoskeletal. SECONDARY DIAGNOSES: 1. History of migraines. 2. Depression. 3. History of nephrolithiasis. 4. Bipolar disorder. 5. Gastroesophageal reflux disease. 6. History of Parrish's esophagus. 7. Degenerative joint disease. 8. Chronic obstructive pulmonary disease. 9. History of recurrent urinary tract infections. 10. Restless leg syndrome. 11. Carpal tunnel syndrome. MEDICATIONS AT DISCHARGE: Unchanged from admission and include: 1. Tramadol 37.5 mg on a p.r.n. basis. 2. Furosemide 20 mg daily. 3. Amitriptyline 150 mg at bedtime. 4. Pyridium on a p.r.n. basis for symptoms of dysuria. 5. Protonix 20 mg a day. 6. Percocet on a p.r.n. basis. 7. Topamax 100 mg twice a day. 8. The patient's Macrobid was discontinued. LABORATORY DATA AND STUDIES: Studies performed during the hospital stay included: The patient's CBC and basic metabolic panel were unremarkable and unchanged from admission. The patient's C-reactive protein was below 1. Urinalysis was unremarkable. Toxicology was positive for opiates and cannabinoids and urine drug screen. Abdomen and pelvis CT obtained with IV contrast on 02/17/17, impression: "No acute CT pathology of the visualized abdomen and pelvis." Renal ultrasound on 02/16/17, impression: "Negative renal ultrasound." HOSPITALIZATION COURSE: Jimmy Mahoney is a 41-year-old female with history of being on all basically monthly prescriptions of narcotic painkillers for all sorts of different chronic or recurrent pain, who presented to the hospital complaining of right flank pain. The patient has had the pain since 02/10/17 when she was evaluated for E. coli UTI and treated with Macrobid. She was placed on observation for further evaluation of the flank pain. Patient's urinalysis was at this point in time unremarkable and renal ultrasound was also unremarkable. CT of the abdomen with IV contrast to rule out any other pathology, showed no acute pathology. On exam, the patient has point tenderness in the area indicated in the right lower chest. It is most likely related to musculoskeletal problems. Also shingles will be on the differential , though the patient's low C-reactive protein negates an inflammatory or infectious problem at this point. The patient is going to be discharged home with recommendation to follow up with primary care provider in the setting of outpatient physical therapy. Due to the patient's history of bipolar disorder, she may have a potential for opioid abuse. She was already prescribed 20- day prescription of Ultram on the of this month and I am not going to prescribe her anymore narcotics prior to discharge. PHYSICAL EXAMINATION: Physical exam at the time of discharge, blood pressure 123/79, heart rate of 53 and regular, respiratory rate 16, oxygen saturation 98 % on room air, temperature 98.1. General: Patient is a very pleasant 41-year- old obese female who is in no acute distress. Alert, awake, and oriented x3. HEENT: Head atraumatic, normocephalic. Eyes: Pupils equal and reactive to light and accommodation. Oropharynx clear. Mucosa moist. Neck: Supple. No JVD. No bruits bilaterally. Cardiovascular: Regular rate and rhythm. No murmur. Respiratory: Clear to auscultation bilaterally. Abdomen: Soft, nontender. Bowel sounds present in all 4 quadrants. Extremities: There is no edema. Pulses +2 bilaterally. There is no clubbing or cyanosis. On palpation of the posterior chest, the patient has an area of tenderness localized in the thoracic back area on the right side. The area is approximately 2 dermatomes. There is no skin abnormality noted on evaluation. It appears to be muscular related. Neuro Evaluation: Speech clear. Cranial nerves II through XII grossly intact. Motor strength is 5/5 bilaterally. Patient is recommended to follow up with her primary care provider in approximately 4 to 7 days. [id number]/[facility] #: [id number] [facility]OSPITALSalena
== END 2017-02-17 14:50 | disposition home or self-care (01) ==
LOC: ED 20:19 → MEDTELE 02-17 00:45
PROVIDERS: ADMIT Internal Medicine; ATTEND Internal Medicine
DX: R10.9 Unspecified abdominal pain (principal); F32.9 Major depressive disorder, single episode, unspecified; F31.9 Bipolar disorder, unspecified; K21.9 Gastro-esophageal reflux disease without esophagitis; M19.90 Unspecified osteoarthritis, unspecified site; J44.9 Chronic obstructive pulmonary disease, unspecified; G25.81 Restless legs syndrome; G56.00 Carpal tunnel syndrome, unspecified upper limb; F11.90 Opioid use, unspecified, uncomplicated; F12.90 Cannabis use, unspecified, uncomplicated; Z88.5 Allergy status to narcotic agent; Z88.1 Allergy status to other antibiotic agents; Z90.49 Acquired absence of other specified parts of digestive tract; Q42.8 Congenital absence, atresia and stenosis of other parts of large intestine; Z90.710 Acquired absence of both cervix and uterus
CPT/HCPCS: 36415; 74177; 76775; 80053; 80307; 81003; 85025; 86140; 96365; 99284; A9270-GY; G0378; J1170; J1580; J1644; J2405; Q9967

== ENCOUNTER → 2017-02-20 22:12 | Emergency (ER) | payer OTHER ==
[2017-02-21 02:45] VITALS: BP 120/65
== END | disposition left against medical advice (07) ==
LOC: ED 22:12
DX: M54.9 Dorsalgia, unspecified (principal); Z53.21 Procedure and treatment not carried out due to patient leaving prior to being seen by health care provider

== ENCOUNTER 2017-06-02 20:04 | Emergency (ER) | payer OTHER ==
[2017-06-02 21:40] LABS: Urine Bacteria 2+ (Absent); Urine Bilirubin Negative (Negative); Urine Glucose Negative (Negative); Urine Nitrite Positive (Negative)
[2017-06-03] MEDS ORDERED: NS 0.9% 1000 ML* 1,000 ML IV ONE (00:18)
[2017-06-03] MEDS ORDERED: Ondansetron INJ* 2 MG/ML VIAL IV ONE (00:32)
[2017-06-03] MEDS ORDERED: HYDROmorphone INJ* 1 MG/ML CARPUJECT SYRINGE IV ONE (00:32)
[2017-06-03 01:11] LABS: Hematocrit 40 % (35-47); Hemoglobin 13.9 g/dl (12.0-16.0); Mean Corpuscular HGB Conc 34 g/dl (31-36); Mean Corpuscular Hemoglobin 30 pg (27-31); Mean Corpuscular Volume 87 fL (80-97); Mean Platelet Volume 8 um3 (7.4-10.4); Red Blood Count 4.64 10^6/ul (4.0-5.4); Red Cell Distribution Width 13 % (10.5-15); White Blood Count 9.2 10^3/ul (3.5-10.8)
[2017-06-03 01:24] LABS: Albumin 3.8 g/dL (3.2-5.2); BUN/Creatinine Ratio 15.7 (8-20); C Reactive Protein 2.28 mg/L (< 5.00); Calcium 8.7 mg/dL (8.6-10.3); EGFR African American 97.9 (>60); EGFR Non-African American 76.1 (>60); Globulin 2.3 g/dL (2-4); Potassium 3.6 mmol/L (3.5-5.0); Total Bilirubin 0.5 mg/dL (0.2-1.0); Total Protein 6.1 g/dL (6.4-8.9)
[2017-06-03] MEDS ORDERED: Nitrofurantoin Macrocrystals* 100 MG CAP PO ONE (03:05)
[2017-06-03] MEDS ORDERED: diPHENhydraMINE IV* 50 MG/ML 1 ml VIAL (BENADRYL) SLOW PUSH ONE (03:05)
[2017-06-03] MEDS ORDERED: HYDROcodone/ACETAMIN 5-325 MG* 1 TAB PO ONE (03:06)
[2017-06-03 05:28] VITALS: BP 108/65
--- NOTE | 2017-06-03 06:49 | ED ---
Tank Molina Abhishek, scribed for Rodriguez Blair MD on 06/03/17 at 0154 . GI/ HPI - HPI Summary HPI Summary: This patient is a 42 year old F presenting to [facility] accompanied by male with a chief complaint of UTI worse since Wednesday (two days ago). The CC is described as constant. The patient rates the pain 10/10 in severity. Symptoms aggravated by nothing. Symptoms alleviated by nothing. Patient reports antibiotics (Macrobid) have not alleviated the UTI, back pain on the lower left side, and "bladder pain" radiated to abd. Pt states My urine is really bad, and smells really bad. Pt also states increased urinary frequency, nausea, lower back pain when palpated, weight loss (143 lbs), and slight abd pain when palpated. PMHx includes Chronic UTI described as intermittent since January, renal calculi 3x in the right kidney, and stage 2 chronic renal disease. - History of Current Complaint Chief Complaint: EDUrogenitalProblems Time Seen by Provider: 06/03/17 00:17 Stated Complaint: BURNING WHEN URINATING/PAIN LOWER BODY Hx Obtained From: Patient Onset/Duration: Started Days Ago - Wednesday Timing: Constant Severity: Severe Current Severity: Severe Pain Intensity: 10 Location of Pain: Other - "bladder pain" Pain Radiates to: Flank - abd pain Associated Signs and Symptoms: Positive: Back Pain, Nausea, Weight Loss - 143 lbs, Other: - Pt states My urine is really bad, and smells really bad. Increased urinary frequency Additional Signs & Symptoms: Positive: Other: - increased urinary frequency Aggravating Factor(s): Palpation - lower back pain when palpated. slight back pain when palpated. Alleviating Factor(s): Nothing - Additional Pertinent History Primary Care Physician: [id number] - Allergy/Home Medications Allergies/Adverse Reactions: Allergies Allergy/AdvReac Type Severity Reaction Status Date / Time Bee Venom Allergy Severe Anaphylatic Verified 02/17/17 02:24 Shock Tree Nuts Allergy Severe Anaphylatic Verified 02/17/17 02:25 Shock Morphine Allergy Intermediate Hives Verified 02/16/17 20:21 Cephalexin [From Keflex] Allergy Mild Hives Verified 02/16/17 20:21 Ciprofloxacin Allergy Mild Rash Verified 02/16/17 20:21 Levofloxacin [From Levaquin] Allergy Mild Hives Verified 02/16/17 20:21 Meperidine [From Demerol HCl] Allergy Mild Pain Verified 02/16/17 20:21 Penicillins [PCN] Allergy Mild Rash And Verified 02/17/17 02:26 Itching Codeine AdvReac Intermediate Headache Verified 02/16/17 20:21 PMH/Surg Hx/FS Hx/Imm Hx Endocrine/Hematology History: Denies: Hx Anticoagulant Therapy, Hx Diabetes, Hx Thyroid Disease Cardiovascular History: Denies: Hx Congestive Heart Failure, Hx Hypertension, Hx Pacemaker/ICD Respiratory History: Reports: Hx Asthma, Hx Chronic Obstructive Pulmonary Disease (COPD) GI History: Reports: Hx Gastroesophageal Reflux Disease History: Reports: Hx Kidney Infection, Hx Kidney Stones, Other Problems/ Disorders - RENAL CALCULI WITH LITHO Denies: Hx Dialysis, Hx Renal Disease Musculoskeletal History: Reports: Hx Arthritis, Other Musculoskeletal History - degenerative disk disease Sensory History: Reports: Hx Contacts or Glasses Denies: Hx Hearing Aid Opthamlomology History: Reports: Hx Contacts or Glasses Neurological History: Denies: Hx Dementia, Hx Seizures Psychiatric History: Reports: Hx Depression, Hx Bipolar Disorder Denies: Hx Panic Disorder, Hx Substance Abuse - Cancer History Cancer Type, Location and Year: CERVICAL - Surgical History Surgery Procedure, Year, and Place: HYSTERECTOMY/MARIE/LITHO 1X FOR RENAL CALCULI/TONSILS, APPENDECTOMY. april 2016 - gastric bypass Hx Anesthesia Reactions: No - Immunization History Date of Tetanus Vaccine: N Date of Influenza Vaccine: N Infectious Disease History: No Infectious Disease History: Denies: Hx Clostridium Difficile, Hx Hepatitis, Hx Human Immunodeficiency Virus (HIV), Hx of Known/Suspected MRSA, Hx Shingles, Hx Tuberculosis, Hx Known/ Suspected VRE, Hx Known/Suspected VRSA, History Other Infectious Disease, Traveled Outside the [place] in Last 30 Days - Family History Known Family History: Positive: Cardiac Disease, Other - grandfather of [place] in 50s, grandmother of cancer in 50s - Social History Alcohol Use: None Hx Substance Use: No Substance Use Type: Reports: Marijuana Substance Use Comment - Amount & Last Used: this morning Hx Tobacco Use: Yes - smoked 1/2 ppd since age 17 to age 39 Smoking Status (MU): Former Smoker Type: Cigarettes Amount Used/How Often: 1 pack every 2 weeks Length of Time of Smoking/Using Tobacco: 22 years Have You Smoked in the Last Year: Yes Review of Systems Positive: Other - ewight loss Eyes: Negative ENT: Negative Cardiovascular: Negative Respiratory: Negative Positive: Abdominal Pain - to palpation, Nausea Positive: frequency, other - bladder pain" Positive: Other - back pain on the lower left side. Skin: Negative Neurological: Negative Psychological: Normal All Other Systems Reviewed And Are Negative: Yes Physical Exam - Summary Physical Exam Summary: General: well-appearing, Mild pain distress Skin: warm, color reflects adequate perfusion, dry Head: normal Eyes: EOMI, JACQUES ENT: normal Neck: supple, nontender Respiratory: CTA, breath sounds present Cardiovascular: RRR Abdomen:epigastric tenderness, left sided abd tenderness , soft Bowel: positive bowel sound Musculoskeletal: , Mild left CVA tenderness, strength/ROM intact Neurological: normal, sensory/motor intact, A&O x3 Psychological: affect/mood appropriate Triage Information Reviewed: Yes Vital Signs On Initial Exam: Initial Vitals Temp Pulse Resp BP Pulse Ox 97.7 F 60 18 131/77 98 06/02/17 20:16 06/02/17 20:16 06/02/17 20:16 06/02/17 20:16 06/02/17 20:16 Vital Signs Reviewed: Yes - Leonel Coma Scale Coma Scale Total: 15 Diagnostics - Vital Signs Vital Signs Temp Pulse Resp BP Pulse Ox 06/02/17 22:59 61 18 122/51 100 06/02/17 20:16 97.7 F 60 18 131/77 98 - Laboratory Lab Results: Lab Results 06/02/17 06/03/17 06/03/17 Range/Units 21:00 01:00 01:00 WBC 9.2 (3.5-10.8) 10^3/ul RBC 4.64 (4.0-5.4) 10^6/ul Hgb 13.9 (12.0-16.0) g/dl Hct 40 (35-47) % MCV 87 (80-97) fL MCH 30 (27-31) pg MCHC 34 (31-36) g/dl RDW 13 (10.5-15) % Plt Count 223 (150-450) 10^3/ul MPV 8 (7.4-10.4) um3 Neut % (Auto) 51.1 (38-83) % Lymph % (Auto) 39.5 (25-47) % Mcminn % (Auto) 6.6 (1-9) % Eos % (Auto) 2.2 (0-6) % Baso % (Auto) 0.6 (0-2) % Absolute Neuts (auto) 4.7 (1.5-7.7) 10^3/ul Absolute Lymphs (auto) 3.6 (1.0-4.8) 10^3/ul Absolute Monos (auto) 0.6 (0-0.8) 10^3/ul Absolute Eos (auto) 0.2 (0-0.6) 10^3/ul Absolute Basos (auto) 0.1 (0-0.2) 10^3/ul Absolute Nucleated RBC 0 10^3/ul Nucleated RBC % 0 Sodium 137 (133-145) mmol/L Potassium 3.6 (3.5-5.0) mmol/L Chloride 104 (101-111) mmol/L Carbon Dioxide 27 (22-32) mmol/L Anion Gap 6 (2-11) mmol/L BUN 13 (6-24) mg/dL Creatinine 0.83 (0.51-0.95) mg/dL Est GFR ( Amer) 97.9 (>60) Est GFR (Non-Af Amer) 76.1 (>60) BUN/Creatinine Ratio 15.7 (8-20) Glucose 86 (70-100) mg/dL Calcium 8.7 (8.6-10.3) mg/dL Total Bilirubin 0.50 (0.2-1.0) mg/dL AST 12 L (13-39) U/L ALT 11 (7-52) U/L Alkaline Phosphatase 60 (34-104) U/L C-Reactive Protein 2.28 (< 5.00) mg/L Total Protein 6.1 L (6.4-8.9) g/dL Albumin 3.8 (3.2-5.2) g/dL Globulin 2.3 (2-4) g/dL Albumin/Globulin Ratio 1.7 (1-3) Urine Color Yellow Urine Appearance Cloudy Urine pH 5.0 (5-9) Ur Specific [place] 1.029 (1.010-1.030) Urine Protein 2+(100 mg/dl) H (Negative) Urine Ketones Negative (Negative) Urine Blood Negative (Negative) Urine Nitrate Positive H (Negative) Urine Bilirubin Negative (Negative) Urine Urobilinogen Negative (Negative) Ur Leukocyte Esterase 2+ H (Negative) Urine WBC (Auto) 3+(>20/hpf) H (Absent) Urine RBC (Auto) Absent (Absent) Ur Squamous Epith Cells Present H (Absent) Urine Bacteria 2+ H (Absent) Urine Glucose Negative (Negative) Result Diagrams: 06/03/17 01:00 06/03/17 01:00 Lab Statement: Any lab studies that have been ordered have been reviewed, and results considered in the medical decision making process. - CT CT A/P CT Interpretation: Positive (See Comments) - 1. Nonobstructive inferior right calyceal stone. No other renal or ureteral stones. No hydronephrosis. 2. Short segment distal sigmoid spasm or subtle infectious/ inflammatory colitis. Correlate clinically. ED physician has reviewed the radiology report and agrees. CT Interpretation Completed By: Radiologist ANNABELLE Course/Dx - Course Course Of Treatment: This patient is a 42 year old F presenting to [facility] c/o UTI worsening since Wednesday night (two days ago). The patient rates the pain 10/ 10 in severity. Patient reports antibiotics (Macrobid) have not alleviated the UTI, back pain on the lower left side, and "bladder pain" radiated to abd. Pt states My urine is really bad, and smells really bad. Pt also states increased urinary frequency, nausea, lower back pain when palpated, weight loss (143 lbs), and slight abd pain when palpated. PMHx includes Chronic UTI described as intermittent since January, renal calculi 3x in the right kidney, and stage [address] Abd/pel reveals "1. Nonobstructive inferior right calyceal stone. No other renal or ureteral stones. No hydronephrosis. 2. Short segment distal sigmoid spasm or subtle infectious/ inflammatory colitis. Correlate clinically." UA positive for UTI. In the ED course, pt received Gentamicin, Marston 5-325, Dilaudid, Macrodantin, fluids, Zofran and Benadryl. Pt will be D/C to home with Rx for Marston 5-325 and Macrobid. She is agreeable with this plan. Allergies noted. Medications reviewed. Elevated blood pressure noted. PAIN IMPROVED IN ED. DISCUSSED RESULTS WITH PATIENT TO INCLUDE THE POSSIBLE SIGMOID INFLAMMATION ON CT. AT THIS TIME, WILL TREAT UTI WITH MACROBID AND CLOSE F/U WITH PMD. WE DISCUSSED THE POSSIBLE SIGMOID INFLAMATION; SHE WILL F/U WITH HER PMD; SHE WILL RETURN TO ED IF WORSE. - Diagnoses Provider Diagnoses: Abdominal pain, Flank pain, UTI (urinary tract infection) Discharge - Discharge Plan Condition: Stable Disposition: HOME Prescriptions: HYDROcodone/ACETAMIN 5-325 MG* [Marston 5-325 TAB*] 1 tab PO Q4H PRN #10 tab MDD 6 PRN Reason: Pain Nitrofurantoin Monohyd Macro [Macrobid] 100 mg PO BID #19 cap Patient Education Materials: Urinary Tract Infection in Women (ED), Acute Abdominal Pain (ED) Referrals: Ben Crespo MD [Primary Care Provider] - Additional Instructions: FOLLOW UP WITH YOUR DOCTOR TODAY. YOUR CT SCAN SHOWED WHAT MAY BE INFLAMMATION IN YOUR SIGMOID COLON. YOU ARE BEING TREATED FOR AN UTI NOW. IF YOU DEVELOP GASTROENTESTINAL SYMPTOMS, GET RECHECKED RIGHT AWAY. RETURN TO THE EMERGENCY DEPARTMENT FOR ANY WORSENING OF YOUR CONDITION; PAIN, FEVER, VOMITING, YOU FEEL ILL OR QUESTIONS OR CONCERNS. The documentation as recorded by the Tank flannery Abhishek accurately reflects the service I personally performed and the decisions made by me, Rodriguez Blair MD.
--- NOTE | 2017-06-03 07:52 | RAD ---
CLINICAL HISTORY: Left flank pain COMPARISON: February 17, 2017 TECHNIQUE: Multiple contiguous axial CT scans were obtained of the abdomen and pelvis, without intravenous contrast enhancement. Coronal and sagittal multiplanar reformations are submitted for review. Oral contrast was not administered. FINDINGS: The study is limited by the lack of intravenous contrast. This limits evaluation of the solid organs and vasculature. LUNG BASES: The lung bases are clear. LIVER: The liver measures 19 cm in long axis. BILE DUCTS: There is no intrahepatic or extrahepatic biliary dilatation. GALLBLADDER: The gallbladder is not visualized. Surgical clips are noted in the gallbladder fossa. PANCREAS: The pancreas is normal, without mass or ductal dilatation. SPLEEN: Normal in size and appearance. UPPER GI TRACT: Evaluation of the gastrointestinal tract is limited by incomplete gastric distention. There is post surgical change to the upper GI tract. SMALL BOWEL AND MESENTERY: There is postsurgical change to the small bowel. There is no obstruction. COLON: There is focal narrowing with mucosal thickening of the sigmoid colon best seen on coronal image 35. ADRENALS: Normal bilaterally. KIDNEYS: There is a 0.2 cm nonobstructing right renal calyceal stone in the lower pole. The calculus noted anterior to the psoas muscle on axial image 92 is felt to be related to the gonadal vein.. There is no hydronephrosis. BLADDER: The bladder is smooth in contour. PELVIC ORGANS: The pelvic organs are not visualized. AORTA: The aorta is normal. IVC: Unremarkable LYMPH NODES: There is no lymphadenopathy by size criteria. ABDOMINAL WALL: There is no evidence for abdominal wall hernia. BONES AND SOFT TISSUES: Unremarkable OTHER: None IMPRESSION: 1. NONOBSTRUCTING RIGHT RENAL CALYCEAL STONE. NO HYDRONEPHROSIS. 2. THERE IS FOCAL NARROWING AND MUCOSAL THICKENING OF THE SIGMOID COLON. WHILE THIS MAY BE AN ARTIFACT OF PERISTALSIS, THE DIFFERENTIAL INCLUDES INFECTIOUS OR INFLAMMATORY COLITIS, WELL COLONIC MUCOSAL NEOPLASM. RECOMMEND CONSIDERATION OF CORRELATION WITH DIRECT VISUALIZATION OF THE SIGMOID COLON. 3. THE LIVER IS MILDLY ENLARGED.
--- NOTE | 2017-06-05 08:55 | PN ---
Progress Note - Progress Note Date of Service: 06/02/17 Note: e.coli >100,000 grew on urine preliminary results. patient was treated with macrobid. will wait for final sensitivity results. no further changes needed at this time.
== END 2017-06-03 05:32 | disposition home or self-care (01) ==
LOC: ED 20:04
DX: R10.84 Generalized abdominal pain (principal); M54.9 Dorsalgia, unspecified; R11.0 Nausea; Z87.891 Personal history of nicotine dependence
CPT/HCPCS: 36415; 74176; 80053; 81003; 81015; 83605; 84702; 85025; 86140; 87040; 87077; 87086; 87186; 96374; 99284; A9270-GY; J1170; J1200; J1580; J2405

== ENCOUNTER 2017-06-16 17:41 | Emergency (ER) | payer OTHER ==
[2017-06-16] MEDS ORDERED: HYDROmorphone INJ* 1 MG/ML CARPUJECT SYRINGE IV SLOW PU ONE (18:34)
[2017-06-16] MEDS ORDERED: Ondansetron INJ* 2 MG/ML VIAL IV ONE (18:34)
[2017-06-16] MEDS ORDERED: NS 0.9% 1000 ML* 1,000 ML IV ONE (18:34)
[2017-06-16 19:13] LABS: Hematocrit 43 % (35-47); Hemoglobin 14.8 g/dl (12.0-16.0); Mean Corpuscular HGB Conc 34 g/dl (31-36); Mean Corpuscular Hemoglobin 30 pg (27-31); Mean Corpuscular Volume 88 fL (80-97); Mean Platelet Volume 8 um3 (7.4-10.4); Red Blood Count 4.92 10^6/ul (4.0-5.4); Red Cell Distribution Width 13 % (10.5-15); White Blood Count 7.4 10^3/ul (3.5-10.8)
[2017-06-16] MEDS ORDERED: HYDROmorphone INJ* 2 MG/ML CARPUJECT SYRINGE ONE (19:14)
[2017-06-16] MEDS ORDERED: diPHENhydraMINE IV* 50 MG/ML 1 ml VIAL (BENADRYL) ONE (19:24)
[2017-06-16] MEDS ORDERED: diPHENhydraMINE IV* 50 MG/ML 1 ml VIAL (BENADRYL) IV ONE (19:27)
[2017-06-16 19:32] LABS: ALT 16 U/L (7-52); Albumin 4.2 g/dL (3.2-5.2); Alkaline Phosphatase 64 U/L (34-104); BUN/Creatinine Ratio 10.8 (8-20); Blood Urea Nitrogen 9 mg/dL (6-24); C Reactive Protein < 1.00 mg/L (< 5.00); CO2 Carbon Dioxide 29 mmol/L (22-32); Calcium 9.2 mg/dL (8.6-10.3); Chloride 103 mmol/L (101-111); EGFR African American 97.9 (>60); EGFR Non-African American 76.1 (>60); Globulin 2.9 g/dL (2-4); Glucose 91 mg/dL (70-100); Lipase 70 U/L (11.0-82.0); Sodium 137 mmol/L (133-145); Total Protein 7.1 g/dL (6.4-8.9)
[2017-06-16 19:40] LABS: Anion Gap 5 mmol/L (2-11)
[2017-06-16 20:51] LABS: Urine Bilirubin Negative (Negative); Urine Glucose Negative (Negative); Urine Nitrite Negative (Negative)
[2017-06-16] MEDS ORDERED: HYDROmorphone INJ* 1 MG/ML CARPUJECT SYRINGE IV ONE (21:11)
--- NOTE | 2017-06-16 21:15 | ED ---
Andrez Molina Alfonso, scribed for Teena Pepper MD on 06/16/17 at 1830 . Abdominal Pain/Female - HPI Summary HPI Summary: This patient is a 42 year old F presenting to [facility] referred by PCP with a chief complaint of RUQ abdominal pain since 3 weeks ago, worse since earlier today. The pain radiates to her flank. The patient rates the pain 10/10 in severity. Symptoms aggravated by nothing. Symptoms alleviated by nothing. Symptoms not aggravated by deep breaths. Patient reports N/V. She denies recent travels. She reports recently losing 145 lb since a gastric bypass surgery. - History of Current Complaint Chief Complaint: EDAbdPain Stated Complaint: ABD PAIN Time Seen by Provider: 06/16/17 18:10 Hx Obtained From: Patient Onset/Duration: Gradual Onset, Lasting Weeks - 3, Worse Since - earlier today Timing: Constant Severity Currently: Severe Pain Intensity: 10 Pain Scale Used: 0-10 Numeric Location: Discrete At: RUQ Radiates: Yes Radiates to: Flank Aggravating Factor(s): Nothing Alleviating Factor(s): Nothing Associated Signs and Symptoms: Positive: Nausea, Vomiting Allergies/Adverse Reactions: Allergies Allergy/AdvReac Type Severity Reaction Status Date / Time Bee Venom Allergy Severe Anaphylatic Verified 02/17/17 02:24 Shock Tree Nuts Allergy Severe Anaphylatic Verified 02/17/17 02:25 Shock Morphine Allergy Intermediate Hives Verified 02/16/17 20:21 Cephalexin [From Keflex] Allergy Mild Hives Verified 02/16/17 20:21 Ciprofloxacin Allergy Mild Rash Verified 02/16/17 20:21 Levofloxacin [From Levaquin] Allergy Mild Hives Verified 02/16/17 20:21 Meperidine [From Demerol HCl] Allergy Mild Pain Verified 02/16/17 20:21 Penicillins [PCN] Allergy Mild Rash And Verified 02/17/17 02:26 Itching Codeine AdvReac Intermediate Headache Verified 02/16/17 20:21 PMH/Surg Hx/FS Hx/Imm Hx Endocrine/Hematology History: Denies: Hx Anticoagulant Therapy, Hx Diabetes, Hx Thyroid Disease Cardiovascular History: Denies: Hx Congestive Heart Failure, Hx Hypertension, Hx Pacemaker/ICD Respiratory History: Reports: Hx Asthma, Hx Chronic Obstructive Pulmonary Disease (COPD) GI History: Reports: Hx Gastroesophageal Reflux Disease History: Reports: Hx Kidney Infection, Hx Kidney Stones, Other Problems/ Disorders - RENAL CALCULI WITH LITHO Denies: Hx Dialysis, Hx Renal Disease Musculoskeletal History: Reports: Hx Arthritis, Other Musculoskeletal History - degenerative disk disease Sensory History: Reports: Hx Contacts or Glasses Denies: Hx Hearing Aid Opthamlomology History: Reports: Hx Contacts or Glasses Neurological History: Denies: Hx Dementia, Hx Seizures Psychiatric History: Reports: Hx Depression, Hx Bipolar Disorder Denies: Hx Panic Disorder, Hx Substance Abuse - Cancer History Cancer Type, Location and Year: CERVICAL - Surgical History Surgery Procedure, Year, and Place: HYSTERECTOMY/MARIE/LITHO 1X FOR RENAL CALCULI/TONSILS, APPENDECTOMY. april 2016 - gastric bypass Hx Anesthesia Reactions: No - Immunization History Date of Tetanus Vaccine: N Date of Influenza Vaccine: N Infectious Disease History: No Infectious Disease History: Denies: Hx Clostridium Difficile, Hx Hepatitis, Hx Human Immunodeficiency Virus (HIV), Hx of Known/Suspected MRSA, Hx Shingles, Hx Tuberculosis, Hx Known/ Suspected VRE, Hx Known/Suspected VRSA, History Other Infectious Disease, Traveled Outside the [place] in Last 30 Days - Family History Known Family History: Positive: Cardiac Disease, Other - grandfather of [place] in 50s, grandmother of cancer in 50s - Social History Lives: Alone Alcohol Use: None Hx Substance Use: No Substance Use Type: Reports: Marijuana Substance Use Comment - Amount & Last Used: multiple times a day Hx Tobacco Use: Yes - smoked 1/2 ppd since age 17 to age 39 Smoking Status (MU): Former Smoker Type: Cigarettes Amount Used/How Often: 1 pack every 2 weeks Length of Time of Smoking/Using Tobacco: 22 years Have You Smoked in the Last Year: Yes Review of Systems Negative: Fever Positive: Abdominal Pain, Vomiting, Nausea All Other Systems Reviewed And Are Negative: Yes Physical Exam - Summary Physical Exam Summary: General: Well appearing, no pain distress Skin: Warm, Skin Color Reflects Adequate Perfusion, Dry Eyes: EOMI, JACQUES ENT: Pharynx normal, TMs normal Neck: Supple, nontender Respiratory: CTA, breath sounds present, no rhonchi, no wheezes, no rales Cardiovascular: RRR, no murmur, no rub, no gallop Abdomen: Soft, RUQ and epigastric tenderness, Non-distended, no guarding, no rebound Bowel: Present Musculoskeletal: ASCENCION, No edema Neuro: Sensory/motor intact, A&Ox3, CN intact 2-12 Psych: Affect/mood appropriate Triage Information Reviewed: Yes Vital Signs On Initial Exam: Initial Vitals Temp Pulse Resp BP Pulse Ox 98.7 F 58 16 122/76 99 06/16/17 17:57 06/16/17 17:57 06/16/17 17:57 06/16/17 17:57 06/16/17 17:57 Vital Signs Reviewed: Yes Diagnostics - Vital Signs Vital Signs Temp Pulse Resp BP Pulse Ox 06/16/17 18:21 53 98 06/16/17 18:20 112/70 06/16/17 17:57 98.7 F 58 16 122/76 99 - Laboratory Lab Results: Lab Results 06/16/17 06/16/17 06/16/17 Range/Units 19:02 19:02 19:02 WBC 7.4 (3.5-10.8) 10^3/ul RBC 4.92 (4.0-5.4) 10^6/ul Hgb 14.8 (12.0-16.0) g/dl Hct 43 (35-47) % MCV 88 (80-97) fL MCH 30 (27-31) pg MCHC 34 (31-36) g/dl RDW 13 (10.5-15) % Plt Count 239 (150-450) 10^3/ul MPV 8 (7.4-10.4) um3 Neut % (Auto) 45.5 (38-83) % Lymph % (Auto) 45.7 (25-47) % Putnam % (Auto) 5.8 (1-9) % Eos % (Auto) 2.6 (0-6) % Baso % (Auto) 0.4 (0-2) % Absolute Neuts (auto) 3.4 (1.5-7.7) 10^3/ul Absolute Lymphs (auto) 3.4 (1.0-4.8) 10^3/ul Absolute Monos (auto) 0.4 (0-0.8) 10^3/ul Absolute Eos (auto) 0.2 (0-0.6) 10^3/ul Absolute Basos (auto) 0 (0-0.2) 10^3/ul Absolute Nucleated RBC 0.01 10^3/ul Nucleated RBC % 0.1 D-Dimer, Quantitative < 200 (Less Than 230) ng/mL Sodium 137 (133-145) mmol/L Potassium TNP Chloride 103 (101-111) mmol/L Carbon Dioxide 29 (22-32) mmol/L Anion Gap 5 (2-11) mmol/L BUN 9 (6-24) mg/dL Creatinine 0.83 (0.51-0.95) mg/dL Est GFR ( Amer) 97.9 (>60) Est GFR (Non-Af Amer) 76.1 (>60) BUN/Creatinine Ratio 10.8 (8-20) Glucose 91 (70-100) mg/dL Lactic Acid (0.5-2.0) mmol/L Calcium 9.2 (8.6-10.3) mg/dL Total Bilirubin 0.50 (0.2-1.0) mg/dL AST TNP ALT 16 (7-52) U/L Alkaline Phosphatase 64 (34-104) U/L C-Reactive Protein < 1.00 (< 5.00) mg/L Total Protein 7.1 (6.4-8.9) g/dL Albumin 4.2 (3.2-5.2) g/dL Globulin 2.9 (2-4) g/dL Albumin/Globulin Ratio 1.4 (1-3) Lipase 70 (11.0-82.0) U/L Urine Color Urine Appearance Urine pH (5-9) Ur Specific [place] (1.010-1.030) Urine Protein (Negative) Urine Ketones (Negative) Urine Blood (Negative) Urine Nitrate (Negative) Urine Bilirubin (Negative) Urine Urobilinogen (Negative) Ur Leukocyte Esterase (Negative) Urine Glucose (Negative) 06/16/17 06/16/17 06/16/17 Range/Units 19:02 19:52 20:35 WBC (3.5-10.8) 10^3/ul RBC (4.0-5.4) 10^6/ul Hgb (12.0-16.0) g/dl Hct (35-47) % MCV (80-97) fL MCH (27-31) pg MCHC (31-36) g/dl RDW (10.5-15) % Plt Count (150-450) 10^3/ul MPV (7.4-10.4) um3 Neut % (Auto) (38-83) % Lymph % (Auto) (25-47) % [place] % (Auto) (1-9) % Eos % (Auto) (0-6) % Baso % (Auto) (0-2) % Absolute Neuts (auto) (1.5-7.7) 10^3/ul Absolute Lymphs (auto) (1.0-4.8) 10^3/ul Absolute Monos (auto) (0-0.8) 10^3/ul Absolute Eos (auto) (0-0.6) 10^3/ul Absolute Basos (auto) (0-0.2) 10^3/ul Absolute Nucleated RBC 10^3/ul Nucleated RBC % D-Dimer, Quantitative (Less Than 230) ng/mL Sodium (133-145) mmol/L Potassium 4.0 Chloride (101-111) mmol/L Carbon Dioxide (22-32) mmol/L Anion Gap (2-11) mmol/L BUN (6-24) mg/dL Creatinine (0.51-0.95) mg/dL Est GFR ( Amer) (>60) Est GFR (Non-Af Amer) (>60) BUN/Creatinine Ratio (8-20) Glucose (70-100) mg/dL Lactic Acid 0.9 (0.5-2.0) mmol/L Calcium (8.6-10.3) mg/dL Total Bilirubin (0.2-1.0) mg/dL AST 14 ALT (7-52) U/L Alkaline Phosphatase (34-104) U/L C-Reactive Protein (< 5.00) mg/L Total Protein (6.4-8.9) g/dL Albumin (3.2-5.2) g/dL Globulin (2-4) g/dL Albumin/Globulin Ratio (1-3) Lipase (11.0-82.0) U/L Urine Color Straw Urine Appearance Clear Urine pH 7.0 (5-9) Ur Specific [place] 1.006 L (1.010-1.030) Urine Protein Negative (Negative) Urine Ketones Negative (Negative) Urine Blood Negative (Negative) Urine Nitrate Negative (Negative) Urine Bilirubin Negative (Negative) Urine Urobilinogen Negative (Negative) Ur Leukocyte Esterase Negative (Negative) Urine Glucose Negative (Negative) Result Diagrams: 06/16/17 19:02 06/16/17 19:52 Lab Statement: Any lab studies that have been ordered have been reviewed, and results considered in the medical decision making process. - EKG 1947 Cardiac Rate: Bradycardia - BPM 43 EKG Rhythm: Sinus Bradycardia EKG Interpretation: NAC Abdominal Pain Fem Course/Dx - Course Course Of Treatment: 42 yo female with multiple abd surgeries and kidney stones here with ruq pain s/p gastric bypass labs are normal but due to pts need for multiple shots of pain meds and her complicated history a ct has been ordered and the pt has been signed out to Dr. Cook - Diagnoses Provider Diagnoses: Abdominal pain Discharge - Discharge Plan Condition: Stable Disposition: OTHER Discharge Disposition Comment: to be determined The documentation as recorded by the Andrez flannery Alfonso accurately reflects the service I personally performed and the decisions made by me, Teena Pepper MD.
[2017-06-16] MEDS ORDERED: HYDROmorphone INJ* 2 MG/ML CARPUJECT SYRINGE IV SLOW PU ONE (21:36)
[2017-06-16] MEDS ORDERED: Iohexol 300* (CONTRAST) 10 ML SDV IV ONE (21:53)
--- NOTE | 2017-06-16 23:43 | ED ---
Jeff Molina Rebecca, scribed for Branden Cook MD on 06/16/17 at 2328 . Progress - Progress Note Progress Note: Pt was signed out by Dr. Pepper, pending disposition, awaiting CT Abd/Pel. ct ab pel negative for acute pathology, pt instructed to fu with pmd and GI specialist for further workup to diagnose pain. in no acute distress. - Results/Orders Results/Orders: CT Abd/Pel, as read by radiologist, reveals: The visualized lung bases are clear. Again, noted postsurgical changes of gastric bypass surgery and cholecystectomy. The upper abdominal visceral organs are unremarkable. There is a short segment of intussuscepted small bowel in the left mid abdomen on images 39 through 42 of the axial series. This is possibly transient as there is no evidence of obstruction. Consider obtaining delayed images to evaluate for resolution. The appendix is not identified. The uterus is absent. No intra-abdominal free air, free fluid or loculated collections. ED physician reviewed radiology report and agrees. Re-Evaluation - Re-Evaluation First Eval Re-Evaluation Time: 23:39 Comment: Discussed CT results with the pt. Course/Dx - Course Course Of Treatment: 42 yo female with multiple abd surgeries and kidney stones here with ruq pain s/p gastric bypass labs are normal but due to pts need for multiple shots of pain meds and her complicated history a ct has been ordered and the pt has been signed out to Dr. Cook - Diagnoses Provider Diagnoses: Abdominal pain The documentation as recorded by the Jeff flannery Rebecca accurately reflects the service I personally performed and the decisions made by me, Branden Cook MD.
[2017-06-17 00:49] VITALS: BP 119/74
--- NOTE | 2017-06-17 07:52 | RAD ---
CLINICAL HISTORY: Right upper quadrant pain, status post bypass COMPARISON: June 03, 2017 TECHNIQUE: Multiple contiguous axial CT scans were obtained of the abdomen and pelvis after the administration of intravenous contrast. Coronal and sagittal multiplanar reformations are submitted for review. Oral contrast was administered. Delayed images were obtained through the abdomen and pelvis. FINDINGS: LUNG BASES: The lung bases are clear. LIVER: The liver is diffusely low in attenuation compared to the spleen. There are no focal hepatic parenchymal masses. Liver measures 19.1 cm in long axis. BILE DUCTS: There is no intrahepatic or extrahepatic biliary dilatation. GALLBLADDER: The gallbladder is not visualized. Surgical clips are noted in the gallbladder fossa. PANCREAS: The pancreas is normal, without mass or ductal dilatation. SPLEEN: Normal in size and appearance. UPPER GI TRACT: Evaluation of the gastrointestinal tract is limited by incomplete gastric distention. There is postsurgical change to the upper GI tract. SMALL BOWEL AND MESENTERY: There is post surgical change to the small bowel is noted with the history of bypass. There is a very short segment of intussusception is seen on coronal image 41. There is mild mucosal thickening at the site of anastomosis without obstruction COLON: The colon is normal in contour, course, caliber. There is no pericolonic inflammatory change. The appendix is not visualized. There is no inflammatory change in the right lower quadrant. ADRENALS: Normal bilaterally. KIDNEYS: The kidneys are normal in shape, size, contour, and axis. There is no hydronephrosis or nephrolithiasis. BLADDER: The bladder is smooth in contour. PELVIC ORGANS: The pelvic organs are not visualized. AORTA: The aorta is normal. IVC: Unremarkable LYMPH NODES: There is no lymphadenopathy by size criteria. ABDOMINAL WALL: There is no evidence for abdominal wall hernia. BONES AND SOFT TISSUES: Mild degenerative changes are noted. OTHER: None IMPRESSION: 1. THERE IS A SHORT SEGMENT OF INTUSSUSCEPTION OF THE SMALL BOWEL WITHOUT OBSTRUCTION. THIS MAY BE TRANSIENT AND IS OF UNCERTAIN CLINICAL SIGNIFICANCE. 2. THERE IS MILD MUCOSAL THICKENING OF THE SMALL BOWEL AT THE SITE OF SURGICAL ANASTOMOSIS. 3. MILD HEPATOMEGALY WITH FATTY INFILTRATION OF THE LIVER
== END 2017-06-17 00:48 ==
LOC: ED 17:41
DX: R10.11 Right upper quadrant pain (principal); R11.2 Nausea with vomiting, unspecified; R00.1 Bradycardia, unspecified; Z98.84 Bariatric surgery status; J44.9 Chronic obstructive pulmonary disease, unspecified; F31.9 Bipolar disorder, unspecified; Z87.442 Personal history of urinary calculi; Z88.5 Allergy status to narcotic agent; Z88.0 Allergy status to penicillin; Z88.1 Allergy status to other antibiotic agents; Z91.030 Bee allergy status; F12.90 Cannabis use, unspecified, uncomplicated
CPT/HCPCS: 36415; 74177; 80053; 81003; 83605; 83690; 85025; 85379; 86140; 87040; 93005; 96361; 96374; 96375; 96376; 99284; J1170; J1200; J2405; Q9967

== ENCOUNTER 2018-10-16 19:58 | Emergency (ER) | payer OTHER ==
[2018-10-16] MEDS ORDERED: NS 0.9% 1000 ML** 1,000 ML IV ONE (20:26)
[2018-10-16] MEDS ORDERED: Ketorolac INJ* 30 MG/ML 1 ML VIAL IV ONE (20:41)
[2018-10-16 21:03] LABS: ABS Basophils 0 10^3/ul (0-0.2); ABS Eosinophils 0.2 10^3/ul (0-0.6); ABS Lymphocytes 2.2 10^3/ul (1.0-4.8); ABS Monocytes 0.4 10^3/ul (0-0.8); ABS Neutrophils 3.5 10^3/ul (1.5-7.7); ABS Nucleated RBC 0 10^3/ul; Eosinophil % 2.6 %; Hematocrit 40 % (35-47); Hemoglobin 13.6 g/dl (12.0-16.0); Lymphocyte % 35.3 %; Mean Corpuscular HGB Conc 34 g/dl (31-36); Mean Corpuscular Hemoglobin 31 pg (27-31); Mean Corpuscular Volume 90 fL (80-97); Mean Platelet Volume 7.7 fL (7.4-10.4); Nucleated Red Blood Cells % 0; Platelet Count 230 10^3/ul (150-450); Red Blood Count 4.46 10^6/ul (4.00-5.40); Red Cell Distribution Width 13 % (10.5-15); White Blood Count 6.3 10^3/ul (3.5-10.8)
[2018-10-16 21:17] LABS: Urine Appearance Cloudy; Urine Bacteria 2+ (Absent); Urine Bilirubin Negative (Negative); Urine Blood Negative (Negative); Urine Color Amber; Urine Glucose Negative (Negative); Urine Ketones Negative (Negative); Urine Nitrite Positive (Negative); Urine Protein 1+(30 mg/dL) (Negative); Urine Red Blood Cell Absent (Absent); Urine Specific Gravity 1.025 (1.010-1.030); Urine Squamous Epithelial Cell Present (Absent); Urine Urobilinogen Negative (Negative); Urine White Blood Cell Trace(0-5/hpf) (Absent)
[2018-10-16 21:21] LABS: ALT 16 U/L (7-52); AST 15 U/L (13-39); Albumin/Globulin Ratio 1.9 (1-3); Alkaline Phosphatase 55 U/L (34-104); Anion Gap 2 mmol/L (2-11); BUN/Creatinine Ratio 17.7 (8-20); Blood Urea Nitrogen 14 mg/dL (6-24); C Reactive Protein < 1.00 mg/L (<8.01); CO2 Carbon Dioxide 30 mmol/L (22-32); Calcium 8.4 mg/dL (8.6-10.3); Chloride 105 mmol/L (101-111); EGFR Non-African American 80.2 (>60); Globulin 2.1 g/dL (2-4); Glucose 103 mg/dL (70-100); Potassium 4.1 mmol/L (3.5-5.0); Sodium 137 mmol/L (135-145); Total Protein 6.1 g/dL (6.4-8.9)
[2018-10-16 21:27] LABS: HCG Pregnancy 2.73 mIU/mL
[2018-10-16] MEDS ORDERED: Sulfamethox/Trimethoprim DS 800/160* TAB PO ONE (21:54)
--- NOTE | 2018-10-16 21:56 | ED ---
Back Pain - HPI Summary HPI Summary: Patient complains of right flank pain starting last night, states history of same. States history of kidney stones. Pain has been progressive and persistent the past 2 days, associated with nausea, dark urine with strong odor. Denies fever, cough, sore throat, CP, SOB, V/D, abdominal pain, change in BM, vaginal symptoms. Medical history is migraines, chronic back pain. Abdominal surgical history is hysterectomy, appendectomy, cholecystectomy, gastric bypass 2016. - History of Current Complaint Chief Complaint: EDFlankPain Stated Complaint: FLANK PAIN Time Seen by Provider: 10/16/18 20:12 Hx Obtained From: Patient Onset/Duration: Gradual Onset Onset/Duration: Started Days Ago Timing: Constant Back Pain Location: Is Discrete @ Severity Initially: Severe Severity Currently: Severe Pain Intensity: 10 Pain Scale Used: 0-10 Numeric Character: Sharp, Dull, Aching Aggravating Symptom(s): Movement Alleviating Symptom(s): Rest, Position - Allergies/Home Medications Allergies/Adverse Reactions: Allergies Allergy/AdvReac Type Severity Reaction Status Date / Time Tree Nuts Allergy Severe Anaphylatic Verified 10/16/18 20:01 Shock bee venom protein (honey bee) Allergy Anaphylatic Verified 10/16/18 20:01 Shock cephalexin [From Keflex] Allergy Hives Verified 10/16/18 20:01 ciprofloxacin [From Cipro] Allergy Rash Verified 10/16/18 20:01 codeine Allergy Headache Verified 10/16/18 20:01 levofloxacin [From Levaquin] Allergy Hives Verified 10/16/18 20:01 meperidine Allergy Pain Verified 10/16/18 20:01 morphine Allergy Hives Verified 10/16/18 20:01 Penicillins Allergy Rash And Verified 10/16/18 20:01 Itching prednisone Allergy Dizziness Verified 10/16/18 20:01 PMH/Surg Hx/FS Hx/Imm Hx Endocrine/Hematology History: Denies: Hx Anticoagulant Therapy, Hx Diabetes, Hx Thyroid Disease Cardiovascular History: Denies: Hx Congestive Heart Failure, Hx Hypertension, Hx Pacemaker/ICD Respiratory History: Reports: Hx Asthma, Hx Chronic Obstructive Pulmonary Disease (COPD) GI History: Reports: Hx Gastroesophageal Reflux Disease History: Reports: Hx Kidney Infection, Hx Kidney Stones, Other Problems/ Disorders - RENAL CALCULI WITH LITHO Denies: Hx Dialysis, Hx Renal Disease Musculoskeletal History: Reports: Hx Arthritis, Other Musculoskeletal History - degenerative disk disease Sensory History: Reports: Hx Contacts or Glasses Denies: Hx Hearing Aid Opthamlomology History: Reports: Hx Contacts or Glasses Neurological History: Denies: Hx Dementia, Hx Seizures Psychiatric History: Reports: Hx Depression, Hx Bipolar Disorder Denies: Hx Panic Disorder, Hx Substance Abuse - Cancer History Cancer Type, Location and Year: CERVICAL - Surgical History Surgery Procedure, Year, and Place: HYSTERECTOMY/MARIE/LITHO 1X FOR RENAL CALCULI/TONSILS, APPENDECTOMY. april 2016 - gastric bypass Hx Anesthesia Reactions: No - Immunization History Date of Tetanus Vaccine: utd Date of Influenza Vaccine: none Infectious Disease History: No Infectious Disease History: Denies: Hx Clostridium Difficile, Hx Hepatitis, Hx Human Immunodeficiency Virus (HIV), Hx of Known/Suspected MRSA, Hx Shingles, Hx Tuberculosis, Hx Known/ Suspected VRE, Hx Known/Suspected VRSA, History Other Infectious Disease, Traveled Outside the [place] in Last 30 Days - Family History Known Family History: Positive: None, Cardiac Disease, Other - grandfather of [place] in 50s, grandmother of cancer in 50s - Social History Alcohol Use: Daily Alcohol Amount: 1 daily Hx Substance Use: No Substance Use Type: Reports: Marijuana Substance Use Comment - Amount & Last Used: multiple times a day Hx Tobacco Use: Yes - smoked 1/2 ppd since age 17 to age 39 Smoking Status (MU): Former Smoker Type: Cigarettes Amount Used/How Often: 1 pack every 2 weeks Length of Time of Smoking/Using Tobacco: 22 years Have You Smoked in the Last Year: Yes Review of Systems Constitutional: Negative Eyes: Negative ENT: Negative Cardiovascular: Negative Respiratory: Negative Positive: Nausea Positive: flank pain, other Musculoskeletal: Negative Skin: Negative Neurological: Negative Psychological: Normal All Other Systems Reviewed And Are Negative: Yes Physical Exam - Summary Physical Exam Summary: Abdominal exam unremarkable. CVA tenderness mild on right side. CVA tenderness negative on left side. Triage Information Reviewed: Yes Vital Signs On Initial Exam: Initial Vitals Temp Pulse Resp BP Pulse Ox 99.9 F 60 16 140/83 99 10/16/18 19:58 10/16/18 19:58 10/16/18 19:58 10/16/18 19:58 10/16/18 19:58 Vital Signs Reviewed: Yes Appearance: Positive: Well-Appearing Skin: Positive: Warm Head/Face: Positive: Normal Head/Face Inspection Eyes: Positive: Normal ENT: Positive: Normal ENT inspection Neck: Positive: Supple Respiratory/Lung Sounds: Positive: Clear to Auscultation Cardiovascular: Positive: Normal Abdomen Description: Positive: Nontender Musculoskeletal: Positive: Normal Neurological: Positive: Normal Psychiatric: Positive: Normal AVPU Assessment: Alert - [place] Coma Scale Best Eye Response: 4 - Spontaneous Best Motor Response: 6 - Obeys Commands Best Verbal Response: 5 - Oriented Coma Scale Total: 15 Diagnostics - Vital Signs Vital Signs Temp Pulse Resp BP Pulse Ox 10/16/18 19:58 99.9 F 60 16 140/83 99 - Laboratory Lab Results: Lab Results 10/16/18 10/16/18 10/16/18 Range/Units 20:54 20:54 20:54 WBC 6.3 (3.5-10.8) 10^3/ul RBC 4.46 (4.00-5.40) 10^6/ul Hgb 13.6 (12.0-16.0) g/dl Hct 40 (35-47) % MCV 90 (80-97) fL MCH 31 (27-31) pg MCHC 34 (31-36) g/dl RDW 13 (10.5-15) % Plt Count 230 (150-450) 10^3/ul MPV 7.7 (7.4-10.4) fL Neut % (Auto) 55.2 % Lymph % (Auto) 35.3 % Oliver % (Auto) 6.7 % Eos % (Auto) 2.6 % Baso % (Auto) 0.2 % Absolute Neuts (auto) 3.5 (1.5-7.7) 10^3/ul Absolute Lymphs (auto) 2.2 (1.0-4.8) 10^3/ul Absolute Monos (auto) 0.4 (0-0.8) 10^3/ul Absolute Eos (auto) 0.2 (0-0.6) 10^3/ul Absolute Basos (auto) 0 (0-0.2) 10^3/ul Absolute Nucleated RBC 0 10^3/ul Nucleated RBC % 0 Sodium 137 (135-145) mmol/L Potassium 4.1 (3.5-5.0) mmol/L Chloride 105 (101-111) mmol/L Carbon Dioxide 30 (22-32) mmol/L Anion Gap 2 (2-11) mmol/L BUN 14 (6-24) mg/dL Creatinine 0.79 (0.51-0.95) mg/dL Est GFR ( Amer) 97.0 (>60) Est GFR (Non-Af Amer) 80.2 (>60) BUN/Creatinine Ratio 17.7 (8-20) Glucose 103 H (70-100) mg/dL Lactic Acid 0.5 (0.5-2.0) mmol/L Calcium 8.4 L (8.6-10.3) mg/dL Total Bilirubin 0.40 (0.2-1.0) mg/dL AST 15 (13-39) U/L ALT 16 (7-52) U/L Alkaline Phosphatase 55 (34-104) U/L C-Reactive Protein < 1.00 (<8.01) mg/L Total Protein 6.1 L (6.4-8.9) g/dL Albumin 4.0 (3.2-5.2) g/dL Globulin 2.1 (2-4) g/dL Albumin/Globulin Ratio 1.9 (1-3) Lipase 93 H (11.0-82.0) U/L Beta HCG, Quant 2.73 mIU/mL Urine Color Urine Appearance Urine pH (5-9) Ur Specific [place] (1.010-1.030) Urine Protein (Negative) Urine Ketones (Negative) Urine Blood (Negative) Urine Nitrate (Negative) Urine Bilirubin (Negative) Urine Urobilinogen (Negative) Ur Leukocyte Esterase (Negative) Urine WBC (Auto) (Absent) Urine RBC (Auto) (Absent) Ur Squamous Epith Cells (Absent) Urine Bacteria (Absent) Urine Glucose (Negative) 10/16/18 Range/Units 20:56 WBC (3.5-10.8) 10^3/ul RBC (4.00-5.40) 10^6/ul Hgb (12.0-16.0) g/dl Hct (35-47) % MCV (80-97) fL MCH (27-31) pg MCHC (31-36) g/dl RDW (10.5-15) % Plt Count (150-450) 10^3/ul MPV (7.4-10.4) fL Neut % (Auto) % Lymph % (Auto) % Oliver % (Auto) % Eos % (Auto) % Baso % (Auto) % Absolute Neuts (auto) (1.5-7.7) 10^3/ul Absolute Lymphs (auto) (1.0-4.8) 10^3/ul Absolute Monos (auto) (0-0.8) 10^3/ul Absolute Eos (auto) (0-0.6) 10^3/ul Absolute Basos (auto) (0-0.2) 10^3/ul Absolute Nucleated RBC 10^3/ul Nucleated RBC % Sodium (135-145) mmol/L Potassium (3.5-5.0) mmol/L Chloride (101-111) mmol/L Carbon Dioxide (22-32) mmol/L Anion Gap (2-11) mmol/L BUN (6-24) mg/dL Creatinine (0.51-0.95) mg/dL Est GFR ( Amer) (>60) Est GFR (Non-Af Amer) (>60) BUN/Creatinine Ratio (8-20) Glucose (70-100) mg/dL Lactic Acid (0.5-2.0) mmol/L Calcium (8.6-10.3) mg/dL Total Bilirubin (0.2-1.0) mg/dL AST (13-39) U/L ALT (7-52) U/L Alkaline Phosphatase (34-104) U/L C-Reactive Protein (<8.01) mg/L Total Protein (6.4-8.9) g/dL Albumin (3.2-5.2) g/dL Globulin (2-4) g/dL Albumin/Globulin Ratio (1-3) Lipase (11.0-82.0) U/L Beta HCG, Quant mIU/mL Urine Color [place] Urine Appearance Cloudy Urine pH 6.0 (5-9) Ur Specific [place] 1.025 (1.010-1.030) Urine Protein 1+(30 mg/dl) A (Negative) Urine Ketones Negative (Negative) Urine Blood Negative (Negative) Urine Nitrate Positive A (Negative) Urine Bilirubin Negative (Negative) Urine Urobilinogen Negative (Negative) Ur Leukocyte Esterase Negative (Negative) Urine WBC (Auto) Trace(0-5/hpf) (Absent) Urine RBC (Auto) Absent (Absent) Ur Squamous Epith Cells Present A (Absent) Urine Bacteria 2+ A (Absent) Urine Glucose Negative (Negative) Result Diagrams: 10/16/18 20:54 10/16/18 20:54 Lab Statement: Any lab studies that have been ordered have been reviewed, and results considered in the medical decision making process. Back Pain Course/Dx - Course Course Of Treatment: Patient complains of right flank pain starting last night, states history of same. States history of kidney stones. Pain has been progressive and persistent the past 2 days, associated with nausea, dark urine with strong odor. Denies fever, cough, sore throat, CP, SOB, V/D, abdominal pain, change in BM, vaginal symptoms. Medical history is migraines, chronic back pain. Abdominal surgical history is hysterectomy, appendectomy, cholecystectomy, gastric bypass 2015. Physical exam:Abdominal exam unremarkable. CVA tenderness mild on right side. CVA tenderness negative on left side. Vital signs within normal limits. Labs unremarkable. UA positive for UTI. CT abdomen and pelvis without contrast negative. Patient received prescription for Percocet 5/325 10/10/18 for 30 pills. Patient had told me she had run out as she was been told by primary care to double up for her sciatica, she had run out 2 weeks ago. - Diagnoses Provider Diagnoses: UTI (urinary tract infection) Discharge - Sign-Out/Discharge Documenting (check all that apply): Patient Departure Patient Received Moderate/Deep Sedation with Procedure: No - Discharge Plan Condition: Stable Disposition: HOME Prescriptions: Sulfamethox/Trimethoprim DS* [Bactrim DS 800/160 TAB*] 1 tab PO BID 10 Days #20 tab Patient Education Materials: Urinary Tract Infection in Women (ED) Referrals: Ben Crespo MD [Primary Care Provider] - Additional Instructions: Take Bactrim as directed. Drink plenty of fluids. Take Tylenol for pain. Follow-up with primary care. Return to the ED for any new or worsening symptoms. - Billing Disposition and Condition Condition: STABLE Disposition: Home
[2018-10-16] MEDS ORDERED: oxyCODONE/Acetamin 5/325 MG* TAB PO ONE (22:00)
[2018-10-16 22:21] VITALS: BP 111/73
== END 2018-10-16 22:21 | disposition home or self-care (01) ==
LOC: ED 19:58
DX: N39.0 Urinary tract infection, site not specified (principal); Z87.442 Personal history of urinary calculi; Z90.710 Acquired absence of both cervix and uterus; Z90.49 Acquired absence of other specified parts of digestive tract; Z98.84 Bariatric surgery status; Z88.0 Allergy status to penicillin; Z88.8 Allergy status to other drugs, medicaments and biological substances; Z88.1 Allergy status to other antibiotic agents; Z91.030 Bee allergy status; Z88.5 Allergy status to narcotic agent; Z91.018 Allergy to other foods; Z87.891 Personal history of nicotine dependence
CPT/HCPCS: 36415; 74176; 80053; 81003; 81015; 83605; 83690; 84702; 85025; 86140; 87077; 87086; 87186; 96374; 99283; A9270-GY; J1885

== ENCOUNTER 2019-04-04 16:40 | Emergency (ER) | payer BC, OTHER ==
[2019-04-04 16:58] VITALS: BP 125/79
[2019-04-04] MEDS ORDERED: Acetaminophen TAB* 325 MG PO ONE (17:22)
--- NOTE | 2019-04-04 17:29 | UC ---
Hand/Wrist HPI - HPI Summary HPI Summary: 43-year-old woman comes in with a chief complaint of left wrist and hand pain after striking a counter early this morning. Injuries along the distal ulnar aspect of the wrist and the proximal fifth metacarpal. She does have bruising in this area. Pain is worse with range of motion and palpation. Acetaminophen and resting it decreases the pain. No skin break. No weakness or numbness. - History Of Current Complaint Chief Complaint: UCUpperExtremity Stated Complaint: HAND INJURY Time Seen by Provider: 04/04/19 17:07 Pain Intensity: 5 - Allergies/Home Medications Allergies/Adverse Reactions: Allergies Allergy/AdvReac Type Severity Reaction Status Date / Time Tree Nuts Allergy Severe Anaphylatic Verified 04/04/19 16:58 Shock bee venom protein (honey bee) Allergy Anaphylatic Verified 04/04/19 16:58 Shock cephalexin [From Keflex] Allergy Hives Verified 04/04/19 16:58 ciprofloxacin [From Cipro] Allergy Rash Verified 04/04/19 16:58 codeine Allergy Headache Verified 04/04/19 16:58 levofloxacin [From Levaquin] Allergy Hives Verified 04/04/19 16:58 meperidine Allergy Pain Verified 04/04/19 16:58 morphine Allergy Hives Verified 04/04/19 16:58 NSAIDS (Non-Steroidal Allergy CAN'T TAKE Verified 04/04/19 17:00 Anti-Inflamma S/P GASTRIC BYPASS Penicillins Allergy Rash And Verified 04/04/19 16:58 Itching prednisone Allergy Dizziness Verified 04/04/19 16:58 Home Medications: Home Medications Acetaminophen [Tylenol Extra Strength] 2 tab PO ONCE PRN 04/04/19 [History Confirmed 04/04/19] Pantoprazole TAB * [Protonix TAB*] 40 mg PO BID 04/04/19 [History Confirmed ] PMH/Surg Hx/FS Hx/Imm Hx Previously Healthy: Yes Respiratory History: COPD GI/ History: Gastroesophageal Reflux Neurological History: Migraine Psychological History: Bipolar Disorder Other History Of: Negative For: Anticoagulant Therapy - Surgical History Surgical History: Yes Surgery Procedure, Year, and Place: HYSTERECTOMY/MARIE/LITHO 1X FOR RENAL CALCULI/TONSILS, APPENDECTOMY. april 2016 - gastric bypass - Family History Known Family History: Positive: None, Cardiac Disease, Other - grandfather of [place] in 50s, grandmother of cancer in 50s - Social History Alcohol Use: Daily Alcohol Amount: 2 GLASSES/NIGHT Substance Use Type: Marijuana Substance Use Comment - Amount & Last Used: multiple times a day Smoking Status (MU): Former Smoker Type: Cigarettes Amount Used/How Often: 1 pack every 2 weeks Length of Time of Smoking/Using Tobacco: 22 years Have You Smoked in the Last Year: Yes Household Exposure Type: Cigarettes - Immunization History Most Recent Influenza Vaccination: never Most Recent Tetanus Shot: unknown Most Recent Pneumonia Vaccination: no Review of Systems All Other Systems Reviewed And Are Negative: Yes Constitutional: Positive: Negative Skin: Positive: Bruising Eyes: Positive: Negative ENT: Positive: Negative Respiratory: Positive: Negative Cardiovascular: Positive: Negative Gastrointestinal: Positive: Negative Motor: Positive: Negative Neurovascular: Positive: Negative Musculoskeletal: Positive: Other: - see hpi Neurological: Positive: Negative Psychological: Positive: Negative Is Patient Immunocompromised?: No Physical Exam Triage Information Reviewed: Yes Appearance: Well-Appearing, No Pain Distress, Well-Nourished Vital Signs: Initial Vital Signs Temp 98.6 F 04/04/19 16:52 Pulse 64 04/04/19 16:52 Resp 16 04/04/19 16:52 BP 125/79 04/04/19 16:52 Pulse Ox 100 04/04/19 16:52 Vital Signs Reviewed: Yes Eye Exam: Normal Eyes: Positive: Conjunctiva Clear Neck: Positive: Supple Respiratory: Positive: No respiratory distress Musculoskeletal: Positive: Other: - Ecchymosis and tenderness to palpation left distal ulna and fifth proximal metacarpal. Wrist has full range of motion with full strength although there is pain with flexion and extension of the wrist. Fingers have full range of motion full-strength normal capillary refill normal radial pulses no sensation deficit. Neurological: Positive: Alert Psychological: Positive: Age Appropriate Behavior Skin: Positive: Other - Ecchymosis left wrist along the distal ulna and proximal fifth metacarpal. Hand/Wrist Course/Dx - Course Course Of Treatment: Patient Name: KIARRA ONEILL Medical Record#: [id number] Ordering Physician: Rodriguez Blair MD Acct.#: [id number] : 1975 Age: 43 Sex: F Location: [facility] Exam Date: 04/04/19 170 ADM Status: REG ER Order Information: WRIST LEFT 3+ VWS Accession Number: [id number] CPT: 33382 INDICATION: LEFT ulnar styloid region and fifth metacarpal base pain following injury. COMPARISON: No relevant prior exams available on the [facility] for comparison. TECHNIQUE: AP, lateral, and oblique views LEFT hand. AP, lateral, and oblique views LEFT wrist. REPORT: #. Negative for fracture or articular malalignment at the wrist or hand. #. Preserved joint spaces. #. Mild soft tissue swelling along the ulnar aspect of the wrist and proximal hand. No subcutaneous emphysema or conspicuous foreign body. <Electronically signed by Raymundo Chase MD in OV> 04/04/19 172 Patient Name: KIARRA ONEILL Medical Record#: [id number] Ordering Physician: Rodriguez Blair MD Acct.#: [id number] : 1975 Age: 43 Sex: F Location: [facility] Exam Date: 04/04/191701 ADM Status: REG ER Order Information: HAND - LEFT MINIMUM 3 VIEWS Accession Number: [id number] CPT: 76703 INDICATION: LEFT ulnar styloid region and fifth metacarpal base pain following injury. COMPARISON: No relevant prior exams available on the [facility] for comparison. TECHNIQUE: AP, lateral, and oblique views LEFT hand. AP, lateral, and oblique views LEFT wrist. REPORT: #. Negative for fracture or articular malalignment at the wrist or hand. #. Preserved joint spaces. #. Mild soft tissue swelling along the ulnar aspect of the wrist and proximal hand. No subcutaneous emphysema or conspicuous foreign body. <Electronically signed by Raymundo Chase MD in OV> 04/04/19 172 I discussed the x-rays with the patient. No fracture seen. Patient was placed in a wrist cock-up splint by nursing and patient neurovascular intact after placement of the cock-up splint. Plan is ice immobilization as needed acetaminophen as the patient is not able take NSAIDs. Follow-up with sports medicine or orthopedics if not completely improved. - Differential Dx/Diagnosis Provider Diagnosis: Contusion of left wrist, Contusion of left hand, Left wrist sprain Discharge - Sign-Out/Discharge Documenting (check all that apply): Patient Departure All imaging exams completed and their final reports reviewed: Yes - Discharge Plan Condition: Stable Disposition: HOME Patient Education Materials: Wrist Sprain (ED), Contusion in Adults (ED) Referrals: Ben Crespo MD [Primary Care Provider] - [facility] [Provider Group] Charly Mcdowell MD [Medical Doctor] - Additional Instructions: FOLLOW UP WITH SPORTS MEDICINE OR ORTHOPEDICS IF NOT COMPLETELY IMPROVED. GET RECHECKED SOONER IF YOUR CONDITION WORSENS OR ANY QUESTIONS OR CONCERNS. - Billing Disposition and Condition Condition: STABLE Disposition: Home
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
== END 2019-04-04 17:53 | disposition home or self-care (01) ==
LOC: UCEAST 16:40
DX: S60.222A Contusion of left hand, initial encounter (principal); S60.212A Contusion of left wrist, initial encounter; S63.502A Unspecified sprain of left wrist, initial encounter; W22.8XXA Striking against or struck by other objects, initial encounter; Y92.019 Unspecified place in single-family (private) house as the place of occurrence of the external cause; K21.9 Gastro-esophageal reflux disease without esophagitis; J44.9 Chronic obstructive pulmonary disease, unspecified; F31.9 Bipolar disorder, unspecified; Z88.5 Allergy status to narcotic agent; Z88.0 Allergy status to penicillin; Z87.891 Personal history of nicotine dependence
CPT/HCPCS: 99213; A9270-GY; G0463

== ENCOUNTER 2019-11-09 10:42 | Emergency (ER) | payer BC ==
[2019-11-09 12:14] LABS: ABS Eosinophils 0.1 10^3/ul (0-0.6); ABS Lymphocytes 1.5 10^3/ul (1.0-4.8); ABS Monocytes 0.5 10^3/ul (0-0.8); ABS Neutrophils 4.6 10^3/ul (1.5-7.7); Eosinophil % 0.8 %; Hematocrit 42 % (35-47); Hemoglobin 14.6 g/dL (12.0-16.0); Lymphocyte % 22.7 %; Mean Corpuscular HGB Conc 35 g/dL (31-36); Mean Corpuscular Hemoglobin 32 pg (27-31); Mean Corpuscular Volume 91 fL (80-97); Mean Platelet Volume 7.9 fL (7.4-10.4); Platelet Count 233 10^3/uL (150-450); Red Blood Count 4.63 10^6 /uL (3.70-4.87); Red Cell Distribution Width 13 % (10-15); White Blood Count 6.8 10^3/uL (3.5-10.8)
[2019-11-09 12:33] LABS: Albumin 4.4 g/dL (3.2-5.2); Albumin/Globulin Ratio 2.1 (1-3); BUN/Creatinine Ratio 17.9 (8-20); Calcium 9.2 mg/dL (8.6-10.3); EGFR Non-African American 74.4 (>60); Globulin 2.1 g/dL (2-4); Magnesium 2.2 mg/dL (1.9-2.7); Potassium 4.2 mmol/L (3.5-5.0); Total Bilirubin 0.8 mg/dL (0.2-1.0); Total Protein 6.5 g/dL (6.4-8.9)
[2019-11-09] MEDS ORDERED: NS 0.9% 1000 ML** 1,000 ML IV ONE (12:33)
[2019-11-09] MEDS ORDERED: Ketorolac INJ* 30 MG/ML 1 ML VIAL IV PUSH ONE (12:33)
[2019-11-09 13:13] LABS: TSH (Thyroid Stimulating Horm) 0.62 mcIU/mL (0.34-5.60)
--- NOTE | 2019-11-09 13:21 | ED ---
Syncope/Near Syncope - HPI Summary HPI Summary: 44-year-old presents with syncopal episode today. She states that she woke up because she had a leg cramp. She walked to get a drink and she felt very nauseous and lightheaded. She felt very clammy and ended up passing out. States that her roommate saw that she was kind of twitching when she passed out. She remembers waking up with the twitching. States she felt really lethargic since then. States she's little bit dizzy once in a while. She denies any chest pain or shortness of breath. No recent travel. She is not on hormone therapy. Is adopted so does not know family history. She has passed out before and felt the same. No history of seizures. She also has headache for the past 3 days. Has history of migraines. States feels like her normal migraines. Takes Imitrex with out any relief today. Not the worse headache of her life. States she did hit her head on the right side of the head. No nausea vomiting. Also has bruising noted to left forearm. Is right-handed. no previous fracture to the area. - History Of Current Complaint Chief Complaint: EDSyncope Time Seen by Provider: 11/09/19 12:20 - Allergies/Home Medications Allergies/Adverse Reactions: Allergies Allergy/AdvReac Type Severity Reaction Status Date / Time Tree Nuts Allergy Severe Anaphylatic Verified 11/09/19 10:47 Shock bee venom protein (honey bee) Allergy Anaphylatic Verified 11/09/19 10:47 Shock cephalexin [From Keflex] Allergy Hives Verified 11/09/19 10:47 ciprofloxacin [From Cipro] Allergy Rash Verified 11/09/19 10:47 codeine Allergy Headache Verified 11/09/19 10:47 levofloxacin [From Levaquin] Allergy Hives Verified 11/09/19 10:47 meperidine Allergy Pain Verified 11/09/19 10:47 morphine Allergy Hives Verified 11/09/19 10:47 NSAIDS (Non-Steroidal Allergy CAN'T TAKE Verified 11/09/19 10:47 Anti-Inflamma S/P GASTRIC BYPASS Penicillins Allergy Rash And Verified 11/09/19 10:47 Itching prednisone Allergy Dizziness Verified 11/09/19 10:47 Home Medications: Home Medications Multivitamin [Multivitamins] 1 cap PO DAILY 09/17/18 [History Confirmed 11/09/19 ] SUMAtriptan TAB* [Imitrex TAB*] 25 mg PO DAILY PRN 09/17/18 [History Confirmed 11/09/19] Pantoprazole TAB * [Protonix TAB*] 40 mg PO BID 04/04/19 [History Confirmed ] PMH/Surg Hx/FS Hx/Imm Hx Endocrine/Hematology History: Denies: Hx Anticoagulant Therapy, Hx Diabetes, Hx Thyroid Disease Cardiovascular History: Denies: Hx Congestive Heart Failure, Hx Hypertension, Hx Pacemaker/ICD Respiratory History: Reports: Hx Asthma, Hx Chronic Obstructive Pulmonary Disease (COPD) GI History: Reports: Hx Gastroesophageal Reflux Disease History: Reports: Hx Kidney Infection, Hx Kidney Stones, Other Problems/ Disorders - RENAL CALCULI WITH LITHO Denies: Hx Dialysis, Hx Renal Disease Musculoskeletal History: Reports: Hx Arthritis, Other Musculoskeletal History - degenerative disk disease Sensory History: Reports: Hx Contacts or Glasses Denies: Hx Hearing Aid Opthamlomology History: Reports: Hx Contacts or Glasses Neurological History: Denies: Hx Dementia, Hx Seizures Psychiatric History: Reports: Hx Depression, Hx Bipolar Disorder Denies: Hx Panic Disorder, Hx Substance Abuse - Cancer History Cancer Type, Location and Year: CERVICAL - Surgical History Surgery Procedure, Year, and Place: HYSTERECTOMY/MARIE/LITHO 1X FOR RENAL CALCULI/TONSILS, APPENDECTOMY. april 2016 - gastric bypass Hx Anesthesia Reactions: No - Immunization History Date of Tetanus Vaccine: utd Date of Influenza Vaccine: none Infectious Disease History: No Infectious Disease History: Denies: Hx Clostridium Difficile, Hx Hepatitis, Hx Human Immunodeficiency Virus (HIV), Hx of Known/Suspected MRSA, Hx Shingles, Hx Tuberculosis, Hx Known/ Suspected VRE, Hx Known/Suspected VRSA, History Other Infectious Disease, Traveled Outside the [place] in Last 30 Days - Family History Known Family History: Positive: None, Cardiac Disease, Other - grandfather of IA in 50s, grandmother of cancer in 50s - Social History Alcohol Use: Rare Alcohol Amount: 2 GLASSES/NIGHT Hx Substance Use: No Substance Use Type: Reports: Marijuana Substance Use Comment - Amount & Last Used: multiple times a day Hx Tobacco Use: Yes - smoked 1/2 ppd since age 17 to age 39 Smoking Status (MU): Former Smoker Type: Cigarettes Amount Used/How Often: 1 pack every 2 weeks Length of Time of Smoking/Using Tobacco: 22 years Have You Smoked in the Last Year: Yes Review of Systems Negative: Fever Negative: Chest Pain Negative: Shortness Of Breath Positive: Myalgia - right arm pain Positive: Headache, Syncope All Other Systems Reviewed And Are Negative: Yes Physical Exam Triage Information Reviewed: Yes Vital Signs On Initial Exam: Initial Vitals Temp Pulse Resp BP Pulse Ox 99.1 F 58 16 127/91 100 11/09/19 10:44 11/09/19 10:44 11/09/19 10:44 11/09/19 10:44 11/09/19 10:44 Vital Signs Reviewed: Yes Appearance: Positive: Well-Appearing Skin: Positive: Warm, Dry Head/Face: Positive: Normal Head/Face Inspection Eyes: Positive: Normal, EOMI, JACQUES, Conjunctiva Clear ENT: Positive: Normal ENT inspection, Pharynx normal, TMs normal Respiratory/Lung Sounds: Positive: Clear to Auscultation, Breath Sounds Present Cardiovascular: Positive: Normal, RRR Abdomen Description: Positive: Nontender, Soft Bowel Sounds: Positive: Present Musculoskeletal: Positive: Limited @ - left forearm, Other - ecchymosis left forearm Neurological: Positive: Sensory/Motor Intact, Alert, Oriented to Person Place, Time, CN Intact II-III Psychiatric: Positive: Normal Procedures - Sedation Patient Received Moderate/Deep Sedation with Procedure: No Diagnostics - Vital Signs Vital Signs Temp Pulse Resp BP Pulse Ox 11/09/19 10:44 99.1 F 58 16 127/91 100 - Laboratory Lab Results: Lab Results 11/09/19 11/09/19 11/09/19 Range/Units 11:56 11:56 11:56 WBC 6.8 (3.5-10.8) 10^3/uL RBC 4.63 (3.70-4.87) 10^6 /uL Hgb 14.6 (12.0-16.0) g/dL Hct 42 (35-47) % MCV 91 (80-97) fL MCH 32 H (27-31) pg MCHC 35 (31-36) g/dL RDW 13 (10-15) % Plt Count 233 (150-450) 10^3/uL MPV 7.9 (7.4-10.4) fL Neut % (Auto) 68.0 % Lymph % (Auto) 22.7 % Addison % (Auto) 7.9 % Eos % (Auto) 0.8 % Baso % (Auto) 0.6 % Absolute Neuts (auto) 4.6 (1.5-7.7) 10^3/ul Absolute Lymphs (auto) 1.5 (1.0-4.8) 10^3/ul Absolute Monos (auto) 0.5 (0-0.8) 10^3/ul Absolute Eos (auto) 0.1 (0-0.6) 10^3/ul Absolute Basos (auto) 0.0 (0-0.2) 10^3/ul Absolute Nucleated RBC 0.0 10^3/ul Nucleated RBC % 0.0 Sodium 137 (135-145) mmol/L Potassium 4.2 (3.5-5.0) mmol/L Chloride 101 (101-111) mmol/L Carbon Dioxide 30 (22-32) mmol/L Anion Gap 6 (2-11) mmol/L BUN 15 (6-24) mg/dL Creatinine 0.84 (0.51-0.95) mg/dL Est GFR ( Amer) 90.0 (>60) Est GFR (Non-Af Amer) 74.4 (>60) BUN/Creatinine Ratio 17.9 (8-20) Glucose 119 H (70-100) mg/dL Lactic Acid 1.0 (0.5-2.0) mmol/L Calcium 9.2 (8.6-10.3) mg/dL Magnesium 2.2 (1.9-2.7) mg/dL Total Bilirubin 0.80 (0.2-1.0) mg/dL AST 20 (13-39) U/L ALT 24 (7-52) U/L Alkaline Phosphatase 59 (34-104) U/L Troponin I 0.00 (<0.03) ng/mL Total Protein 6.5 (6.4-8.9) g/dL Albumin 4.4 (3.2-5.2) g/dL Globulin 2.1 (2-4) g/dL Albumin/Globulin Ratio 2.1 (1-3) TSH Pending Result Diagrams: 11/09/19 11:56 11/09/19 11:56 Lab Statement: Any lab studies that have been ordered have been reviewed, and results considered in the medical decision making process. - Radiology forearm Radiology Interpretation Completed By: Radiologist Summary of Radiographic Findings: IMPRESSION: No fracture of the left forearm is noted. - EKG No standard instances Cardiac Rate: Bradycardia EKG Rhythm: Sinus Bradycardia Summary of EKG Findings: sinus bradycardia Course/Dx Course Of Treatment: 44-year-old presents with syncopal episode today. She states that she woke up because she had a leg cramp. She walked to get a drink and she felt very nauseous and lightheaded. She felt very clammy and ended up passing out. States that her roommate saw that she was kind of twitching when she passed out. She remembers waking up with the twitching. States she felt really lethargic since then. States she's little bit dizzy once in a while. She denies any chest pain or shortness of breath. No recent travel. She is not on hormone therapy. Is adopted so does not know family history. She has passed out before and felt the same. No history of seizures. She also has headache for the past 3 days. Has history of migraines. States feels like her normal migraines. Takes Imitrex with out any relief today. Not the worse headache of her life. States she did hit her head on the right side of the head. No nausea vomiting. Also has bruising noted to left forearm. Is right- handed. no previous fracture to the area. On exam has normal neuro exam. Has ecchymosis of left forearm. wbc normal. ekg shows sinus bradycardia. troponin zero. gave fluids and toradol and feeling better. xray no fracture. told follow up with primary. patient understand and agrees with plan. - Diagnoses Differential Diagnosis/HQI/PQRI: Positive: Hypovolemia, Metabolic Reaction, Vasovagal Episode Provider Diagnoses: Syncope, Left arm pain, Headache Discharge ED - Sign-Out/Discharge Documenting (check all that apply): Patient Departure - Discharge Plan Condition: Good Disposition: HOME Patient Education Materials: Syncope (ED) Referrals: Ben Crespo MD [Primary Care Provider] - Additional Instructions: drink plenty of fluids take Tylenol every 6 hours for pain apply ice to area Follow up with primary within 5 days Return to ED if develop any new or worsening symptoms - Billing Disposition and Condition Condition: GOOD Disposition: Home - Attestation Statements Provider Attestation: I was available for consultation for this patient. I did not evaluate the patient or participate in any medical decision making or disposition decisions unless I am specifically named in the chart as having consulted on the patient. If I have consulted on the patient, please see my own ED note on the patient encounter. Eliseo Aguilar MD
[2019-11-09 14:14] VITALS: BP 102/46
== END 2019-11-09 14:12 | disposition home or self-care (01) ==
LOC: ED 10:42
DX: R55 Syncope and collapse (principal); M79.602 Pain in left arm; R51 Headache; J44.9 Chronic obstructive pulmonary disease, unspecified; K21.9 Gastro-esophageal reflux disease without esophagitis; F31.9 Bipolar disorder, unspecified; Z85.41 Personal history of malignant neoplasm of cervix uteri; Z90.710 Acquired absence of both cervix and uterus; Z90.49 Acquired absence of other specified parts of digestive tract; Z90.89 Acquired absence of other organs; Z98.84 Bariatric surgery status; Z87.891 Personal history of nicotine dependence; Z79.899 Other long term (current) drug therapy; Z88.0 Allergy status to penicillin; Z88.1 Allergy status to other antibiotic agents; Z88.5 Allergy status to narcotic agent; Z88.8 Allergy status to other drugs, medicaments and biological substances
CPT/HCPCS: 36415; 80053; 83605; 83735; 84443; 84484; 85025; 93005; 96361; 96374; 99282; J1885

== ENCOUNTER 2020-01-15 09:53 | Observation (INO) ==
[2020-01-15] MEDS ORDERED: NS 0.9% 1000 ml BAG 1,000 ML IV ONE ×2 (10:10→11:57)
[2020-01-15] MEDS ORDERED: Al Hydrox/Mg Hydrox/Simet LIQ 30 ML UDC PO ONE (10:19)
[2020-01-15] MEDS ORDERED: HYDROmorphone 0.5 MG/0.5 ML SYRINGE IV ONE ×2 (10:31→11:57)
[2020-01-15] MEDS ORDERED: Pantoprazole VIAL 40 MG VIAL IV ONE (10:31)
[2020-01-15 10:32] LABS: ABS Basophils 0.1 10^3/ul (0-0.2); ABS Eosinophils 0.1 10^3/ul (0-0.6); ABS Lymphocytes 1.7 10^3/ul (1.0-4.8); Eosinophil % 1.4 %; Hematocrit 43 % (35-47); Hemoglobin 14.7 g/dL (12.0-16.0); Lymphocyte % 16.7 %; Mean Corpuscular HGB Conc 34 g/dL (31-36); Mean Corpuscular Hemoglobin 31 pg (27-31); Mean Corpuscular Volume 91 fL (80-97); Mean Platelet Volume 7.3 fL (7.4-10.4); Nucleated Red Blood Cells % 0.1; Platelet Count 274 10^3/uL (150-450); Red Blood Count 4.72 10^6 /uL (3.70-4.87); Red Cell Distribution Width 13 % (10-15); White Blood Count 10.1 10^3/uL (3.5-10.8)
[2020-01-15 10:49] LABS: Albumin 3.7 g/dL (3.2-5.2); Albumin/Globulin Ratio 1.7 (1-3); BUN/Creatinine Ratio 12.8 (8-20); C Reactive Protein 67.72 mg/L (<8.01); Calcium 8.8 mg/dL (8.6-10.3); Globulin 2.2 g/dL (2-4); Potassium 3.9 mmol/L (3.5-5.0); Total Bilirubin 0.5 mg/dL (0.2-1.0); Total Protein 5.9 g/dL (6.4-8.9)
[2020-01-15 10:55] LABS: HCG Pregnancy 3.32 mIU/mL
[2020-01-15] MEDS ORDERED: Iohexol 300 (CONTRAST) 10 ML SDV IV ONE (11:03)
[2020-01-15] MEDS ORDERED: HYDROmorphone 0.5 MG/0.5 ML SYRINGE IV SLOW PU PRN (12:43)
[2020-01-15] MEDS: NS 0.9% 1000 ml BAG 1,000 ML IV SCH ×2 (15:42→23:28)
[2020-01-15 16:35] LABS: Urine Appearance Clear; Urine Bilirubin Negative (Negative); Urine Blood Negative (Negative); Urine Color Yellow; Urine Glucose Negative (Negative); Urine Ketones Negative (Negative); Urine Nitrite Positive (Negative); Urine Protein Negative (Negative); Urine Specific Gravity 1.057 (1.010-1.030); Urine Urobilinogen Negative (Negative)
[2020-01-15 16:59] LABS: Urine Bacteria 1+ (Absent); Urine Red Blood Cell Trace(0-2/hpf) (Absent); Urine Squamous Epithelial Cell Present (Absent); Urine White Blood Cell Trace(0-5/hpf) (Absent)
[2020-01-15] MEDS: HYDROmorphone 0.5 MG/0.5 ML SYRINGE IV SLOW PU PRN (20:45)
[2020-01-16] MEDS: HYDROmorphone 0.5 MG/0.5 ML SYRINGE IV SLOW PU PRN ×4 (01:52→14:41)
[2020-01-16 06:19] LABS: ABS Eosinophils 0.1 10^3/ul (0-0.6); ABS Lymphocytes 2.3 10^3/ul (1.0-4.8); ABS Monocytes 0.6 10^3/ul (0-0.8); Eosinophil % 2.5 %; Hematocrit 38 % (35-47); Hemoglobin 12.9 g/dL (12.0-16.0); Lymphocyte % 45.3 %; Mean Corpuscular HGB Conc 34 g/dL (31-36); Mean Corpuscular Hemoglobin 31 pg (27-31); Mean Corpuscular Volume 92 fL (80-97); Mean Platelet Volume 7.7 fL (7.4-10.4); Nucleated Red Blood Cells % 0.1; Platelet Count 200 10^3/uL (150-450); Red Blood Count 4.12 10^6 /uL (3.70-4.87); Red Cell Distribution Width 13 % (10-15)
[2020-01-16 06:35] LABS: BUN/Creatinine Ratio 8.8 (8-20); EGFR African American 114.8 (>60); EGFR Non-African American 94.9 (>60); Potassium 4.1 mmol/L (3.5-5.0)
[2020-01-16] MEDS: NS 0.9% 1000 ml BAG 1,000 ML IV SCH ×2 (07:42→19:01)
[2020-01-16] MEDS: Pantoprazole VIAL 40 MG VIAL IV SCH (10:15)
[2020-01-16] MEDS: HYDROmorphone 1 MG/1 ML SYRINGE IV SLOW PU PRN ×2 (17:48→22:18)
[2020-01-16] MEDS: Trimethop/Sulfamethox 800/160 TAB PO SCH (20:31)
[2020-01-17] MEDS: HYDROmorphone 1 MG/1 ML SYRINGE IV SLOW PU PRN ×3 (04:00→12:45)
[2020-01-17] MEDS: NS 0.9% 1000 ml BAG 1,000 ML IV SCH (04:03)
[2020-01-17] MEDS: Trimethop/Sulfamethox 800/160 TAB PO SCH (08:30)
[2020-01-17] MEDS: Pantoprazole VIAL 40 MG VIAL IV SCH (11:10)
[2020-01-17 15:45] VITALS: BP 120/77
== END 2020-01-17 17:25 | disposition home or self-care (01) ==
LOC: SSU 09:53 → ED 09:53 → SSU 14:24
PROVIDERS: ADMIT Internal Medicine; ATTEND Hospitalist

== ENCOUNTER 2024-02-19 13:38 | Observation (INO) ==
[2024-02-19 14:00] LABS: ABS Lymphocytes 1.3 10^3/uL (1.0-4.8); ABS Monocytes 0.2 10^3/uL (0.0-0.9); ABS Neutrophils 4.6 10^3/uL (1.5-7.6); ABS Nucleated RBC 0.01 10^3/ul; Eosinophil % 0.4 %; Hematocrit 38.8 % (35-45); Hemoglobin 13.2 g/dL (11.5-14.3); Lymphocyte % 21.3 %; Mean Corpuscular Hemoglobin 30.4 pg (27-33); Mean Corpuscular Hgb Conc 33.9 g/dL (31-36); Mean Corpuscular Volume 89.8 fL (80-97); Nucleated Red Blood Cells % 0.1 %/100WBC (0.0-0.8); Platelet Count 243 10^3/uL (150-450); Red Blood Count 4.33 10^6/uL (3.63-4.92); Red Cell Distribution Width 13.4 % (12-17); White Blood Count 6.2 10^3/uL (3.8-11.8)
[2024-02-19] MEDS: Iodixanol (CONTRAST) 320 MG/ML 100 ML SDV IV ONE (14:00)
[2024-02-19 14:11] LABS: Albumin 4.3 g/dL (3.2-5.2); Albumin/Globulin Ratio 1.7 (1-3); Calcium 8.5 mg/dL (8.6-10.3); Creatinine, Serum 0.92 mg/dL (0.51-0.95); Direct Bilirubin 0.1 mg/dL (0.03-0.18); Globulin 2.6 g/dL (2-4); HDL Cholesterol 68.9 mg/dL; Indirect Bilirubin 0.3 mg/dL (0.3-1.0); Potassium 3.5 mmol/L (3.5-5.0); Total Bilirubin 0.4 mg/dL (0.2-1.0); Total Protein 6.9 g/dL (6.4-8.9); eGFR CKD-EPI 77.8 (>60)
[2024-02-19 14:19] LABS: Activated Partial Thrombo Time 28.2 seconds (26.0-38.0); INR 0.93 (0.83-1.13)
[2024-02-19 15:18] LABS: Urine Appearance Turbid; Urine Bacteria 1+ /HPF (Absent); Urine Bilirubin Negative (Negative); Urine Blood Negative (Negative); Urine Color Light-Yellow; Urine Glucose 1+ (>=70 mg/dL) (Negative); Urine Ketones Negative (Negative); Urine Nitrite Negative (Negative); Urine Protein Trace (Negative); Urine Red Blood Cell 3+(>10/hpf) /HPF (0-Trace); Urine Squamous Epithelial Cell Present /HPF (Absent); Urine Urobilinogen Negative (Negative); Urine White Blood Cell 2+(11-20/hpf) /HPF (0-Trace); Urine pH 6.5 (5.0-8.0)
[2024-02-19] MEDS ORDERED: Sulfur Hexaflouride MICROSPHR 25 MG VIAL IV ONE (15:19)
[2024-02-19] MEDS: Nicotine PATCH 7 MG/24 HR PATCH TRANSDERM SCH (17:58)
[2024-02-19] MEDS ORDERED: Buprenorp/Nalox 8-2 MG FILM SL PRN (20:41)
[2024-02-19] MEDS: Buprenorp/Nalox 8-2 MG FILM SL SCH (21:29)
[2024-02-20] MEDS: Nicotine Lozenge mini 4 MG LOZNG.MINI MT PRN (09:51)
[2024-02-20] MEDS ORDERED: Albuterol HFA INHALER 8 gm MDI INH PRN (11:32)
[2024-02-20] MEDS: TOPIRAMATE 150 MG PO SCH (13:17)
[2024-02-20 14:29] LABS: Folate > 20.00 ng/mL (5.90-24.80)
[2024-02-20 14:31] LABS: Vitamin B12 202 pg/mL (180-914)
[2024-02-21 06:26] LABS: ABS Eosinophils 0.1 10^3/uL (0.0-0.5); ABS Lymphocytes 1.4 10^3/uL (1.0-4.8); ABS Monocytes 0.4 10^3/uL (0.0-0.9); ABS Neutrophils 4.5 10^3/uL (1.5-7.6); Eosinophil % 1.7 %; Hematocrit 36.1 % (35-45); Hemoglobin 12.2 g/dL (11.5-14.3); Lymphocyte % 22.3 %; Mean Corpuscular Hemoglobin 30.5 pg (27-33); Mean Corpuscular Hgb Conc 33.8 g/dL (31-36); Mean Corpuscular Volume 90.2 fL (80-97); Mean Platelet Volume 7.8 fL (7.5-11.2); Platelet Count 207 10^3/uL (150-450); Red Cell Distribution Width 13.3 % (12-17); White Blood Count 6.4 10^3/uL (3.8-11.8)
[2024-02-21 06:42] LABS: Calcium 8.2 mg/dL (8.6-10.3); Creatinine, Serum 0.79 mg/dL (0.51-0.95); Potassium 3.9 mmol/L (3.5-5.0); eGFR CKD-EPI 93.4 (>60)
[2024-02-21] MEDS: ATOMOXETINE 18 MG PO SCH (08:10)
[2024-02-21] MEDS: CMCS:Atomoxetine 40 mg CAP (NF) PO SCH (08:10)
[2024-02-21 13:35] VITALS: BP 110/63
== END 2024-02-21 18:40 | disposition home or self-care (01) ==
LOC: EDHOLD 13:38 → ED 13:38 → SUATTDRO 15:19 → MEDTELE 20:15
PROVIDERS: ADMIT Student in an Organized Health Care Education/Training Program; ATTEND Internal Medicine